=== PATIENT | male | born 1960 | race Caucasian/White ===

== ENCOUNTER 2023-11-20 13:35 | Inpatient (IN) | payer BC, MEDICARE ==
--- NOTE | 2023-11-20 13:47 | ED ---
General Adult HPI - General Source: patient, RN notes reviewed, old records reviewed <Harish Freire - Last Filed: 11/20/23 15:02> <Rudolph Lawson - Last Filed: 11/20/23 17:27> - General Stated complaint: dizziness Time Seen by Provider: 11/20/23 13:35 - History of Present Illness Initial comments: This is a 63-year-old male who presents to the emergency department with 1 week long history of dizziness. Patient states he is fallen multiple times. Patient states he may have passed out but is not sure but he knows he has fallen over a couple of times. Patient states he has had vomiting since last Sunday but no diarrhea and no abdominal pain. Patient denies any recent fever chills or cough or patient states he does have a mild headache. Patient also complains of shoulder pain. Patient denies any back pain. (Harish Freire) - Related Data Home Medications Medication Instructions Recorded Confirmed Metoprolol Tartrate [Lopressor] 50 mg PO BID 09/07/15 11/20/23 Amiodarone [Cordarone] 200 mg PO BID 11/20/23 11/20/23 Apixaban [Eliquis] 5 mg PO BID 11/20/23 11/20/23 Valsartan [Diovan] 160 mg PO DAILY 11/20/23 11/20/23 Allergies Allergy/AdvReac Type Severity Reaction Status Date / Time No Known Allergies Allergy Verified 11/20/23 15:39 Review of Systems ROS Other: All systems not noted in ROS Statement are negative. <Harish Freire - Last Filed: 11/20/23 15:02> ROS Other: All systems not noted in ROS Statement are negative. <Rudolph Lawson - Last Filed: 11/20/23 17:27> ROS Statement: Those systems with pertinent positive or pertinent negative responses have been documented in the HPI. Past Medical History Past Medical History: Atrial Fibrillation Additional Past Medical History / Comment(s): ulcer, hx pancreatitis, arthritis, History of Any Multi-Drug Resistant Organisms: MRSA Date of last positivie culture/infection: 2009 MDRO Source:: unknown Past Surgical History: Cardiac Valve Replacement, Heart Catheterization, Tonsillectomy Additional Past Surgical History / Comment(s): aortic valve replacement, surgery on rt elbow, left shoulder surgery, cardioversion Past Anesthesia/Blood Transfusion Reactions: No Reported Reaction Past Psychological History: No Psychological Hx Reported Past Alcohol Use History: Daily Past Drug Use History: Marijuana - Past Family History Father Family Medical History: Cancer Mother Family Medical History: Cancer <Hraish Freire - Last Filed: 11/20/23 15:02> General Exam <Harish Freire - Last Filed: 11/20/23 15:02> - General Exam Comments Initial Comments: GENERAL: Patient is well-developed and well-nourished. Patient is nontoxic and well- hydrated and is in mild distress. ENT: Neck is soft and supple. No significant lymphadenopathy is noted. Oropharynx is clear. Moist mucous membranes. Neck has full range of motion without eliciting any pain. EYES: The sclera were anicteric and conjunctiva were pink and moist. Extraocular movements were intact and pupils were equal round and reactive to light. Eyelids were unremarkable. PULMONARY: Unlabored respirations. Good breath sounds bilaterally. No audible rales rhonchi or wheezing was noted. CARDIOVASCULAR: There is a regular rate and rhythm without any murmurs gallops or rubs. ABDOMEN: Soft and nontender with normal bowel sounds. SKIN: Skin is clear with no lesions or rashes and otherwise unremarkable. NEUROLOGIC: Patient is alert and oriented x3. Cranial nerves II through XII are grossly intact. Motor and sensory are also intact. Normal speech, volume and content. Symmetrical smile. MUSCULOSKELETAL: Normal extremities with adequate strength and full range of motion. LYMPHATICS: No significant lymphadenopathy is noted PSYCHIATRIC: Normal psychiatric evaluation. (Harish Freire) Course Vital Signs 11/20/23 11/20/23 11/20/23 13:48 13:50 14:00 Temperature 99.0 F Pulse Rate 106 H 105 H Respiratory 20 Rate Blood Pressure 87/58 87/58 58/36 O2 Sat by Pulse Oximetry 11/20/23 11/20/23 11/20/23 14:10 14:20 14:30 Temperature Pulse Rate 101 H 105 H 93 Respiratory Rate Blood Pressure 63/43 81/26 71/53 O2 Sat by Pulse Oximetry 11/20/23 11/20/23 11/20/23 14:40 14:50 15:00 Temperature Pulse Rate 98 91 88 Respiratory Rate Blood Pressure 73/56 65/51 77/62 O2 Sat by Pulse Oximetry 11/20/23 11/20/23 11/20/23 15:10 15:20 15:29 Temperature Pulse Rate 85 89 89 Respiratory 18 Rate Blood Pressure 76/55 64/53 90/53 O2 Sat by Pulse 94 L Oximetry 11/20/23 15:58 Temperature Pulse Rate 81 Respiratory 18 Rate Blood Pressure 85/69 O2 Sat by Pulse Oximetry Medical Decision Making - Lab Data Result diagrams: 11/20/23 14:34 <Harish Freire - Last Filed: 11/20/23 15:02> - Lab Data Result diagrams: 11/20/23 14:34 11/20/23 14:34 <LawsonRudolph - Last Filed: 11/20/23 17:27> - Medical Decision Making EKG is interpreted by myself. EKG shows atrial fibrillation with rapid ventricular response at 106 bpm QRS 104 QT interval 361 QTc is 423. Patient's EKG shows no ST segment ovation or depression EKG is interpreted by myself. It was repeated because he started to have some chest discomfort so EKG shows atrial fibrillation at 97 bpm QRS 96 QT interval 396 QTc is 451. Patient's EKG shows no ST segment ovation or depression Was pt. sent in by a medical professional or institution (, PA, [employer], urgent care, hospital, or [place] health [facility] facility...) When possible be specific @ -[No] Did you speak to anyone other than the patient for history (EMS, parent, family, police, friend...)? What history was obtained from this source @ -EMS gave quite a bit of the history Did you review nursing and triage notes (agree or disagree)? Why? @ -[I reviewed and agree with nursing and triage notes] Were old charts reviewed (outside hosp., previous admission, EMS record, old EKG, old radiological studies, urgent care reports/EKG's, [place] health care facility records)? Report findings @ -[No old charts were reviewed] Differential Diagnosis (chest pain, altered mental status, abdominal pain women, abdominal pain men, vaginal bleeding, weakness, fever, dyspnea, syncope, headache, dizziness, GI bleed, back pain, seizure, CVA, palpatations, mental health, musculoskeletal)? @ -Differential Syncope: Valvular disease, hypertrophic cardiomyopathy, pulmonary embolism, tamponade, tachycardia, bradycardia, KS, hypovolemia, hemorrhage, dissection, anemia, intracranial hemorrhage, seizure, hypoglycemia, carbon monoxide poisoning, this is not meant to be an all-inclusive list. Differential Dizziness: Benign paroxysmal positional Vertigo, Menieres disease, otitis media, acoustic neuroma, vertebrobasilar insufficiency, cerebellar stroke, encephalitis, hypovolemic, arrhythmia, coronary artery syndrome, anemia, this is not meant to be an all-inclusive list EKG interpreted by me (3pts min.). @ -[As above] X-rays interpreted by me (1pt min.). @ -[None done] CT interpreted by me (1pt min.). @ -[None done] U/S interpreted by me (1pt. min.). @ -[None done] What testing was considered but not performed or refused? (CT, X-rays, U/S, lab s)? Why? @ -[None] What meds were considered but not given or refused? Why? @ -[None] Did you discuss the management of the patient with other professionals (professionals i.e. , PA, [employer]ER, lab, RT, psych nurse, social contact worker, helpdesk manager, teacher, chief information security officer, family preservation caseworker)? Give summary @ -[No] Was smoking cessation discussed for >3mins.? @ -[No] Was critical care preformed (if so, how long)? @ -[No] Were there social determinants of health that impacted care today? How? (Homelessness, low income, unemployed, alcoholism, drug addiction, transportation, low edu. Level, literacy, decrease access to med. care, [facility], rehab)? @ -[No] Was there de-escalation of care discussed even if they declined (Discuss DNR or withdrawal of care, Hospice)? DNR status @ -[No] What co-morbidities impacted this encounter? (DM, HTN, Smoking, COPD, CAD, Cancer, CVA, ARF, Chemo, Hep., AIDS, mental health diagnosis, sleep apnea, morbid obesity)? @ -[None] Was patient admitted / discharged? Hospital course, mention meds given and route, prescriptions, significant lab abnormalities, going to OR and other pertinent info. @ -3 L of normal saline ordered for this patient as well as 100 mg of hydrocortisone. Patient's care will be taken over by Dr. Lawson at 3 PM (Harish Freire) Patient reevaluated. Blood pressure 85 systolic. Prior was 90. Patient will receive additional fluids. Patient states he has not been eating or drinking much of anything over the past week and has had some vomiting. Case was discussed with Dr. Gibbons, who will admit covering for Dr. Peters, who admits for Dr. Cabrera. Admission orders written. Patient will be admitted to the hospital with consult with nephrology. Patient will have continued IV fluids. Patient will need catheter and ultrasound. 31 minutes critical care time. Diagnosis: Acute kidney injury Acute Complicated with lactic acidosis from dehydration CT scan of brain and cervical spine interpreted by myself shows no acute process. Chest x-ray interpreted by myself shows no acute process (Rudolph Lawson) - Lab Data Lab Results 11/20/23 11/20/23 11/20/23 Range/Units 14:30 14:30 14:34 WBC 12.7 H (3.8-10.6) k/uL RBC 5.46 (4.30-5.90) m/uL Hgb 16.0 (13.0-17.5) gm/dL Hct 48.5 (39.0-53.0) % MCV 88.9 (80.0-100.0) fL MCH 29.4 (25.0-35.0) pg MCHC 33.1 (31.0-37.0) g/dL RDW 15.3 (11.5-15.5) % Plt Count 227 (150-450) k/uL MPV 11.6 Neutrophils % 72 % Lymphocytes % 15 % Monocytes % 9 % Eosinophils % 1 % Basophils % 1 % Neutrophils # 9.2 H (1.3-7.7) k/uL Lymphocytes # 2.0 (1.0-4.8) k/uL Monocytes # 1.1 H (0-1.0) k/uL Eosinophils # 0.2 (0-0.7) k/uL Basophils # 0.1 (0-0.2) k/uL PT (10.0-12.5) sec INR (<1.2) APTT (22.0-30.0) sec Sodium (137-145) mmol/L Potassium (3.5-5.1) mmol/L Chloride (98-107) mmol/L Carbon Dioxide (22-30) mmol/L Anion Gap mmol/L BUN (9-20) mg/dL Creatinine (0.66-1.25) mg/dL Est GFR (CKD-EPI)AfAm (>60 ml/min/1.73 sqM) Est GFR (CKD-EPI)NonAf (>60 ml/min/1.73 sqM) Glucose (74-99) mg/dL Plasma Lactic Acid Juno 7.5 H* (0.7-2.0) mmol/L Calcium (8.4-10.2) mg/dL Magnesium (1.6-2.3) mg/dL Total Bilirubin (0.2-1.3) mg/dL AST (17-59) U/L ALT (4-49) U/L Alkaline Phosphatase (38-126) U/L Troponin I (0.000-0.034) ng/mL Total Protein (6.3-8.2) g/dL Albumin (3.5-5.0) g/dL Influenza Type A (PCR) Not Detected (Not Detectd) Influenza Type B (PCR) Not Detected (Not Detectd) RSV (PCR) Not Detected (Not Detectd) SARS-CoV-2 (PCR) Not Detected (Not Detectd) 11/20/23 11/20/23 11/20/23 Range/Units 14:34 14:34 14:34 WBC (3.8-10.6) k/uL RBC (4.30-5.90) m/uL Hgb (13.0-17.5) gm/dL Hct (39.0-53.0) % MCV (80.0-100.0) fL MCH (25.0-35.0) pg MCHC (31.0-37.0) g/dL RDW (11.5-15.5) % Plt Count (150-450) k/uL MPV Neutrophils % % Lymphocytes % % Monocytes % % Eosinophils % % Basophils % % Neutrophils # (1.3-7.7) k/uL Lymphocytes # (1.0-4.8) k/uL Monocytes # (0-1.0) k/uL Eosinophils # (0-0.7) k/uL Basophils # (0-0.2) k/uL PT 13.2 H (10.0-12.5) sec INR 1.3 H (<1.2) APTT 25.5 (22.0-30.0) sec Sodium 133 L (137-145) mmol/L Potassium 4.3 (3.5-5.1) mmol/L Chloride 85 L (98-107) mmol/L Carbon Dioxide 26 (22-30) mmol/L Anion Gap 22 mmol/L BUN 129 H* (9-20) mg/dL Creatinine 7.71 H* (0.66-1.25) mg/dL Est GFR (CKD-EPI)AfAm 8 (>60 ml/min/1.73 sqM) Est GFR (CKD-EPI)NonAf 7 (>60 ml/min/1.73 sqM) Glucose 97 (74-99) mg/dL Plasma Lactic Acid Juno (0.7-2.0) mmol/L Calcium 9.1 (8.4-10.2) mg/dL Magnesium 2.2 (1.6-2.3) mg/dL Total Bilirubin 0.9 (0.2-1.3) mg/dL AST 35 (17-59) U/L ALT 28 (4-49) U/L Alkaline Phosphatase 133 H (38-126) U/L Troponin I 0.040 H* (0.000-0.034) ng/mL Total Protein 6.7 (6.3-8.2) g/dL Albumin 4.0 (3.5-5.0) g/dL Influenza Type A (PCR) (Not Detectd) Influenza Type B (PCR) (Not Detectd) RSV (PCR) (Not Detectd) SARS-CoV-2 (PCR) (Not Detectd) Critical Care Time Critical Care Time: Yes Total Critical Care Time: 31 <Rudolph Lawson - Last Filed: 11/20/23 17:27> Disposition <Harish Freire - Last Filed: 11/20/23 15:02> Is patient prescribed a controlled substance at d/c from ED?: No Time of Disposition: 16:23 <Rudolph Lawson - Last Filed: 11/20/23 17:27> Clinical Impression: GAMAL (acute kidney injury) Disposition: ADMITTED IP TO THIS HOSP Condition: Serious Referrals: Manpreet Cabrera MD [Primary Care Provider] - 1-2 days
[2023-11-20 14:40] LABS: Basophils # (A) 0.1 k/uL (0-0.2); Basophils % (A) 1 %; Eosinophils # (A) 0.2 k/uL (0-0.7); Eosinophils % (A) 1 %; HCT 48.5 % (39.0-53.0); Lymphocytes % (A) 15 %; MCH 29.4 pg (25.0-35.0); MCHC 33.1 g/dL (31.0-37.0); MCV 88.9 fL (80.0-100.0); Mean Platelet Volume 11.6; Monocytes # (A) 1.1 k/uL (0-1.0); Monocytes % (A) 9 %; Neutrophils # (A) 9.2 k/uL (1.3-7.7); Neutrophils % (A) 72 %; Platelet Count 227 k/uL (150-450); RBC 5.46 m/uL (4.30-5.90); RDW 15.3 % (11.5-15.5); WBC 12.7 k/uL (3.8-10.6)
[2023-11-20 14:50] LABS: INR 1.3 (<1.2); Partial Thromboplastin Time 25.5 sec (22.0-30.0); Prothrombin Time 13.2 sec (10.0-12.5)
[2023-11-20 14:58] LABS: ALT 28 U/L (4-49); AST 35 U/L (17-59); African American GFR (CKD) 8 (>60 ml/min/1.73 sqM); Alkaline Phosphatase 133 U/L (38-126); Anion Gap 22 mmol/L; Calcium 9.1 mg/dL (8.4-10.2); Carbon Dioxide 26 mmol/L (22-30); Chloride 85 mmol/L (98-107); Glucose 97 mg/dL (74-99); Magnesium 2.2 mg/dL (1.6-2.3); Non-African American GFR(CKD) 7 (>60 ml/min/1.73 sqM); Potassium 4.3 mmol/L (3.5-5.1); Sodium 133 mmol/L (137-145); Total Bilirubin 0.9 mg/dL (0.2-1.3); Total Protein 6.7 g/dL (6.3-8.2)
[2023-11-20] MEDS: SODIUM CHLORIDE 0.9% 2,000 ML IV ONE (15:02)
[2023-11-20] MEDS: HYDROCORTISONE SUCCINATE 100 MG/2 ML VIAL IV STA (15:02)
[2023-11-20 15:20] LABS: Blood Urea Nitrogen 129 mg/dL (9-20)
[2023-11-20] MEDS: ONDANSETRON 4 MG/2 ML VIAL IVP STA (16:01)
[2023-11-20] MEDS: MECLIZINE 25 MG TAB PO STA (16:01)
[2023-11-20] MEDS ORDERED: NALOXONE 0.4 MG/ML 1 ML VIAL IV PRN ×2 (16:24→20:09)
--- NOTE | 2023-11-20 16:45 | XR ---
EXAMINATION TYPE: XR chest 2V DATE OF EXAM: 11/20/2023 COMPARISON: 01/25/2011 HISTORY: 63-year-old male with chest pain TECHNIQUE: AP and lateral views FINDINGS: Heart borderline in size. Prosthetic aortic valve. Median sternotomy wires. Mild interstitial density . No consolidation or pleural effusion. IMPRESSION: Chronic changes. Borderline heart size. No acute process seen.
--- NOTE | 2023-11-20 17:08 | CT ---
EXAMINATION TYPE: CT brain jewell wo con DATE OF EXAM: 11/20/2023 COMPARISON: None HISTORY: 63-year-old male trauma, DUENAS and dizziness. CT DLP: 1361.4 mGycm Automated exposure control for dose reduction was used. Technique: Examination of the head was done in axial plane without intravenous contrast. Coronal and sagittal reconstructions performed. CT of the cervical spine was obtained in axial plane without intravenous injection of contrast mater ial. Coronal and sagittal reformatted images were obtained from the axial views for evaluation of f ractures, spinal alignment and canal. FINDINGS: Head: There is no evidence of acute intracranial hemorrhage, acute ischemic changes, mass, mass-effect, or extra-axial fluid collection. There is no effacement of cerebral sulci or basal subarachnoid cister ns. There is no hydrocephalus. There is no midline shift. Vyas-white matter distinction is preserv ed. Mild mucosal thickening throughout the ethmoid air cells. Mastoid air cells are well pneumatized. Orb its and globes are intact. Cervical spine: No craniocervical junction abnormality, predental space widening, or prevertebral soft tissue swellin g. Severe disc/endplate degenerative change C5-C7 levels with loss of disc space and endplate sclerosis. Disc osteophyte complexes are present contributing to moderate spinal canal stenosis here. Multilevel facet and uncovertebral joint arthropathy is present. Degenerative grade 1 anterolisthesis C3-C4 and C4-C5. Grade 1 retrolisthesis C5-C6 and C6-C7. Additional grade 1 anterolisthesis C7-T1. No acute fracture seen of the cervical spine. Variable moderate neural foraminal stenosis throughout. Severe on the right at C5-C6 and on both side s at C6/C7. Emphysematous change in the visualized upper lungs. Sagittal and coronal reformatted images confirm above findings. COMBINED IMPRESSION: 1. No acute intracranial abnormality seen. 2. Moderate to advanced multilevel spondylotic changes especially C5-C7 levels. Degenerative grade 1 spondylolisthesis C3-T1 levels. No acute fracture seen of the cervical spine.
[2023-11-20] MEDS: PANTOPRAZOLE 40 MG/10 ML VIAL IV SCH (17:32)
[2023-11-20] MEDS: SODIUM CHLORIDE 0.9% 1,000 ML IV SCH (17:32)
[2023-11-20 17:42] LABS: Appearance,Urine Clear (Clear); Bilirubin,Urine Negative (Negative); Blood,Urine Negative (Negative); Color,Urine Light Yellow; Glucose,Urine (UA) Negative (Negative); Ketones,Urine 1+ (Negative); Leukocyte Esterase,Urine Negative (Negative); Nitrite,Urine Negative (Negative); Protein,Urine Trace (Negative); Specific Gravity,Urine 1.011 (1.001-1.035); Urobilinogen,Urine <2.0 mg/dL (<2.0)
--- NOTE | 2023-11-20 18:47 | US ---
EXAMINATION TYPE: US kidneys/renal and bladder DATE OF EXAM: 11/20/2023 COMPARISON: NONE CLINICAL INDICATION: Male, 63 years old with history of GAMAL EXAM MEASUREMENTS: Right Kidney: 9.4 x 6.5 x 5.3 cm Left Kidney: 11.4 x 4.3 x 6.0 cm Right Kidney: No hydronephrosis or masses seen Left Kidney: No hydronephrosis or masses seen Bladder: Empty due to Horton Bilateral Jets seen: No IMPRESSION: 1. No hydronephrosis. 2. Limited assessment of the bladder due to indwelling Horton catheter.
[2023-11-20 20:28] LABS: Glucose,Whole Blood 133 mg/dL (70-110)
[2023-11-20 21:29] LABS: Basophils % (A) 0 %; Eosinophils % (A) 0 %; HCT 40.9 % (39.0-53.0); HGB 13.3 gm/dL (13.0-17.5); Lymphocytes # (A) 0.6 k/uL (1.0-4.8); Lymphocytes % (A) 8 %; MCH 29.8 pg (25.0-35.0); MCHC 32.5 g/dL (31.0-37.0); MCV 91.8 fL (80.0-100.0); Mean Platelet Volume 11.2; Monocytes # (A) 0.3 k/uL (0-1.0); Monocytes % (A) 4 %; Neutrophils # (A) 5.8 k/uL (1.3-7.7); Neutrophils % (A) 86 %; Platelet Count 147 k/uL (150-450); RBC 4.45 m/uL (4.30-5.90); RDW 15.3 % (11.5-15.5); WBC 6.8 k/uL (3.8-10.6)
[2023-11-20] MEDS: NOREPINEPHRINE 4 MG in SODIUM CHLORIDE 0.9% 250 ML IV SCH (21:30)
[2023-11-20 21:35] LABS: African American GFR (CKD) 12 (>60 ml/min/1.73 sqM); Anion Gap 16 mmol/L; Calcium 7.6 mg/dL (8.4-10.2); Carbon Dioxide 17 mmol/L (22-30); Chloride 102 mmol/L (98-107); Glucose 123 mg/dL (74-99); Magnesium 1.8 mg/dL (1.6-2.3); Non-African American GFR(CKD) 10 (>60 ml/min/1.73 sqM); Potassium 4.2 mmol/L (3.5-5.1); Sodium 135 mmol/L (137-145)
[2023-11-20 22:29] LABS: Blood Urea Nitrogen 109 mg/dL (9-20)
[2023-11-21] MEDS ORDERED: LORazepam 2 MG/ML INJ IV PRN ×3 (01:44)
--- NOTE | 2023-11-21 01:59 | P.CNPUL ---
History of Present Illness Consult date: 11/21/23 Requesting physician: Rudolph Lawson Reason for consult: other (Hypotension and ICU management) Chief complaint: Intractable nausea and vomiting, dizziness, falls History of present illness: I am seeing this patient in consultation today 11/21/2023 in the intensive care unit after he was admitted for intractable nausea and vomiting, severe dehydration, and acute kidney injury. Blood pressure was hypotensive in the emergency room despite adequate fluid resuscitation, requiring low-dose norepine phrine, and admission to the intensive care unit. Patient is a 63-year-old white male with past medical history significant for aortic valve replacement, atrial fibrillation, alcoholism, and chronic pancreatitis. Patient reports intractable nausea and vomiting over the last week. No fever. He is not able to keep any oral fluids or food down. He has been severely weak. He has been dizzy especially on arising. Reports multiple near syncopal events where he is fallen on the floor. Patient states that he has drinks alcohol, approximately 6-12 beers per day, but has not had anything over the last week. He denies any hematemesis, diarrhea, melena, constipation. He does report some mild right lower quadrant abdominal pain. Nonradiating. Abdomen is soft and does not appear acute. No guarding with palpation or rigidity. Patient is currently lying in bed, on 2 L/min nasal cannula, in no acute distress. SpO2 is 95%. Denies any shortness of breath. Denies any URI-like symptoms. Negative for influenza, RSV, COVID. Chest x-ray does not show any acute cardiopulmonary findings. Den ies chest pain. Does report intermittent heart palpitations and lightheadedness. 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 He is also on losartan and metoprolol outpatient. Heart rhythm is currently atrial fibrillation with controlled ventricular rate of around 70 bpm. Blood pressure remains hypotensive despite multiple fluid boluses given in ER, I am told a total of 4 L of crystalloid fluid was given. Normal saline is currently infusing at 130 MLS per hour. Patient is currently on low-dose norepinephrine infusing at 0.02 mcg/kg/min or 1.5 mcg/min. He has sustained acute kidney injury. Ultrasound of the kidneys and bladder did not show any obstructive uropathy or hydronephrosis. Most recent BMP from last night includes a sodium 135, potassium 4.2, chloride 102, serum bicarb 17, BUN and creatinine down to 109 and 5.43 respectively, glucose 123. Most recent CBC from last night was unremarkable, no leukocytosis. Lactic acid level was elevated at 7.5 and is down to 1.4. Troponin was also elevated at 0.4 and is down to 0.026 on redraw. Lipase was only mildly elevated at 317. AST 35, ALT 28, ALP 133. Urinalysis not concerning for UTI. He does have a indwelling urinary catheter, and is making urine in the order of approximately 50 cc/h. Currently, the patient is resting comfortably. No further nausea or vomiting. He is tolerating a minimal amount of clear liquids. Review of Systems REVIEW OF SYSTEMS: CONSTITUTIONAL: Denies any recent significant weight loss or weight gain. Admits generalized weakness and fatigue and lightheadedness. Denies fevers. EYES: Denies change in vision. EARS, NOSE, MOUTH, THROAT: Denies headaches, denies sore throat. CARDIOVASCULAR: See HPI RESPIRATORY: Denies shortness of breath, cough, congestion or hemoptysis. GASTROINTESTINAL: See HPI GENITOURINARY: Denies hematuria, denies infections. MUSKULOSKELETAL: Denies pain, denies swelling. INTEGUMENTARY: Denies rash, denies eczema. NEUROLOGICAL: Denies recent memory loss, no recent seizure activity. PSYCHIATRIC: Denies anxiety, denies depression. HEMATOLOGIC/LYMPHATIC: Denies anemia, denies enlarged lymph node Past Medical History Past Medical History: Atrial Fibrillation Additional Past Medical History / Comment(s): ulcer, hx pancreatitis, arthritis, aortic valve replacement at [facility] Nov 07 2010. History of Any Multi-Drug Resistant Organisms: MRSA Date of last positivie culture/infection: 2009 MDRO Source:: unknown Past Surgical History: Bowel Resection, Cardiac Valve Replacement, Heart Catheterization, Tonsillectomy Additional Past Surgical History / Comment(s): aortic valve replacement, surgery on rt elbow, left shoulder surgery, cardioversion 2023 Past Anesthesia/Blood Transfusion Reactions: No Reported Reaction Past Psychological History: No Psychological Hx Reported Smoking Status: Former smoker Past Alcohol Use History: Daily Past Drug Use History: Marijuana - Past Family History Father Family Medical History: Cancer Mother Family Medical History: Cancer Medications and Allergies Home Medications Medication Instructions Recorded Confirmed Type Metoprolol Tartrate [Lopressor] 50 mg PO BID 09/07/15 11/20/23 History Amiodarone [Cordarone] 200 mg PO BID 11/20/23 11/20/23 History Apixaban [Eliquis] 5 mg PO BID 11/20/23 11/20/23 History Valsartan [Diovan] 160 mg PO DAILY 11/20/23 11/20/23 History Allergies Allergy/AdvReac Type Severity Reaction Status Date / Time No Known Allergies Allergy Verified 11/20/23 15:39 Physical Exam Vitals: Vital Signs Temp Pulse Resp BP Pulse Ox 11/20/23 23:00 74 5 L 73/59 96 11/20/23 22:57 19 11/20/23 22:50 73 23 73/59 94 L 11/20/23 22:40 77 8 L 85/63 94 L 11/20/23 22:30 74 7 L 77/60 95 11/20/23 22:20 76 6 L 77/60 96 11/20/23 22:10 73 11 L 83/62 96 11/20/23 22:00 74 6 L 82/62 96 11/20/23 21:50 82 6 L 82/62 98 11/20/23 21:40 76 12 82/60 95 11/20/23 21:30 70 10 L 79/60 96 11/20/23 21:20 77 6 L 79/60 93 L 11/20/23 21:10 72 18 68/54 94 L 11/20/23 21:00 79 4 L 93/48 93 L 11/20/23 20:50 74 6 L 93/48 96 11/20/23 20:40 82 5 L 97/75 94 L 11/20/23 20:30 85 27 H 92/39 97 11/20/23 20:22 98.9 F 82 16 79/64 97 11/20/23 20:20 79/64 11/20/23 18:30 86 80/60 95 11/20/23 18:20 86 80/60 94 L 11/20/23 18:10 85 80/60 94 L 11/20/23 18:00 82 98 11/20/23 17:50 85 95 11/20/23 17:40 85 97 11/20/23 17:30 87 11/20/23 17:20 75 85/70 99 11/20/23 17:10 79 86/72 87 L 11/20/23 17:00 82 86/72 11/20/23 16:50 87/62 11/20/23 16:40 87/62 11/20/23 16:30 87/62 11/20/23 16:20 82 88/62 100 11/20/23 16:10 85 86/64 100 11/20/23 16:00 81 85/69 11/20/23 15:58 81 18 85/69 11/20/23 15:50 87 81/63 100 11/20/23 15:40 87 77/57 11/20/23 15:30 89 90/53 11/20/23 15:29 89 18 90/53 11/20/23 15:20 89 64/53 94 L 11/20/23 15:10 85 76/55 11/20/23 15:00 88 77/62 11/20/23 14:50 91 65/51 11/20/23 14:40 98 73/56 11/20/23 14:30 93 71/53 11/20/23 14:20 105 H 81/26 11/20/23 14:10 101 H 63/43 11/20/23 14:00 105 H 58/36 11/20/23 13:50 87/58 11/20/23 13:48 99.0 F 106 H 20 87/58 Intake and Output 11/20/23 11/20/23 11/21/23 14:59 22:59 06:59 Intake Total 260 Output Total 155 Balance 105 Intake: Intake, IV Titration 260 Amount Sodium Chloride 0.9% 1, 260 000 ml @ 130 mls/hr IV . Q7H42M [facility] Rx#:[id number] Output: Urine 155 Other: Voiding Method Indwelling Catheter Weight 74.843 kg 74.843 kg GENERAL EXAM: Alert, 63-year-old white male, comfortable in no apparent distress. HEAD: Normocephalic and atraumatic EYES: Normal reaction of pupils, equal size. NOSE: Clear with pink turbinates. THROAT: Dry mucous membranes, No erythema or exudates. NECK: No masses, no JVD. CHEST: No chest wall deformity. LUNGS: Equal air entry with no crackles, wheeze, rhonchi or dullness. No conversational dyspnea or accessory muscle use.. CVS: S1 and S2 normal with no audible murmur, irregular rhythm. No extra heart sounds ABDOMEN: Abdomen is flat. No periumbilical or flank bruising. Active bowel sounds. No appreciable hepatosplenomegaly. Abdomen is soft. No guarding or rigidity. Psoas sign negative. No rebound tenderness or referred tenderness. Negative Schilling's sign. SPINE: No scoliosis or deformity SKIN: No rashes CENTRAL NERVOUS SYSTEM: No focal deficits, tone is normal in all 4 extremities. EXTREMITIES: There is no peripheral edema, clubbing, or cyanosis. Peripheral pulses are intact. Results - Laboratory Findings CBC and BMP: 11/20/23 20:42 11/20/23 20:42 PT/INR, D-dimer PT 13.2 sec (10.0-12.5) H 11/20/23 14:34 INR 1.3 (<1.2) H 11/20/23 14:34 Abnormal lab findings: Abnormal Labs 11/20/23 11/20/23 11/20/23 14:30 14:34 14:34 WBC 12.7 H Plt Count Neutrophils # 9.2 H Lymphocytes # Monocytes # 1.1 H PT 13.2 H INR 1.3 H Sodium Chloride Carbon Dioxide BUN Creatinine Glucose POC Glucose (mg/dL) Plasma Lactic Acid Juno 7.5 H* Calcium Alkaline Phosphatase Troponin I Lipase Urine Protein Urine Ketones 11/20/23 11/20/23 11/20/23 14:34 14:34 17:36 WBC Plt Count Neutrophils # Lymphocytes # Monocytes # PT INR Sodium 133 L Chloride 85 L Carbon Dioxide BUN 129 H* Creatinine 7.71 H* Glucose POC Glucose (mg/dL) Plasma Lactic Acid Juno Calcium Alkaline Phosphatase 133 H Troponin I 0.040 H* Lipase Urine Protein Trace H Urine Ketones 1+ H 11/20/23 11/20/23 11/20/23 20:27 20:42 20:42 WBC Plt Count 147 L Neutrophils # Lymphocytes # 0.6 L Monocytes # PT INR Sodium 135 L Chloride Carbon Dioxide 17 L BUN 109 H* Creatinine 5.43 H Glucose 123 H POC Glucose (mg/dL) 133 H Plasma Lactic Acid Juno Calcium 7.6 L Alkaline Phosphatase Troponin I Lipase Urine Protein Urine Ketones 11/20/23 23:13 WBC Plt Count Neutrophils # Lymphocytes # Monocytes # PT INR Sodium Chloride Carbon Dioxide BUN Creatinine Glucose POC Glucose (mg/dL) Plasma Lactic Acid Juno Calcium Alkaline Phosphatase Troponin I Lipase 317 H Urine Protein Urine Ketones - Diagnostic Findings Chest x-ray: image reviewed Assessment and Plan Assessment: Intractable nausea and vomiting and severe dehydration Refractory hypotension and suspected hypovolemic shock, secondary to above Lactic acidosis, improved Abdominal pain, currently under investigation Acute kidney injury, secondary to severe dehydration, improving Atrial fibrillation with controlled ventricular rate, normally anticoagulated on Eliquis History of hypertension History of aortic stenosis, status post aortic valve replacement Alcoholism, drinks 6-12 beers per day History of chronic pancreatitis Plan: Patient's medications, labs, chest x-ray reviewed Patient's nausea and vomiting has subsided, there is PRNs of Zofran if needed. Tolerating clear liquids at this time. Patient is complaining of some mild right lower abdominal pain, does not appear acute, will order abdominal ultrasound Ultrasound of renals and bladder does not show any obstructive uropathy or hydronephrosis. Nephrology is consulted. He remains hypotensive despite multiple fluid boluses, I am told he is received a total of 4 L normal saline bolus so far. He is currently on a low-dose norepinephrine infusion Continue to hold antihypertensives. Continue Eliquis Obtain 2D echocardiogram Monitor for alcohol withdrawal symptoms/CIWA Protonix for GI prophylaxis. Patient will be continued to be monitored in the intensive care unit. I have personally seen and examined the patient, performed the documentation and the assessment and plan as written. Number of minutes spent on the visit:20 I Time with Patient: Greater than 30
[2023-11-21 02:11] LABS: Basophils % (A) 0 %; Eosinophils % (A) 1 %; HCT 38.2 % (39.0-53.0); HGB 12.7 gm/dL (13.0-17.5); Lymphocytes # (A) 0.5 k/uL (1.0-4.8); Lymphocytes % (A) 8 %; MCH 30.1 pg (25.0-35.0); MCHC 33.3 g/dL (31.0-37.0); MCV 90.4 fL (80.0-100.0); Mean Platelet Volume 11.1; Monocytes # (A) 0.3 k/uL (0-1.0); Monocytes % (A) 5 %; Neutrophils # (A) 5.1 k/uL (1.3-7.7); Neutrophils % (A) 86 %; Platelet Count 153 k/uL (150-450); RBC 4.22 m/uL (4.30-5.90); RDW 15.2 % (11.5-15.5); WBC 5.9 k/uL (3.8-10.6)
[2023-11-21] MEDS: THIAMINE 100 MG/ML 2 ML VIAL IM STA (02:16)
[2023-11-21 02:24] LABS: ALT 30 U/L (4-49); AST 40 U/L (17-59); African American GFR (CKD) 14 (>60 ml/min/1.73 sqM); Albumin 2.7 g/dL (3.5-5.0); Alkaline Phosphatase 102 U/L (38-126); Anion Gap 8 mmol/L; Calcium 7.4 mg/dL (8.4-10.2); Carbon Dioxide 21 mmol/L (22-30); Chloride 103 mmol/L (98-107); Glucose 115 mg/dL (74-99); Non-African American GFR(CKD) 13 (>60 ml/min/1.73 sqM); Potassium 4.4 mmol/L (3.5-5.1); Sodium 132 mmol/L (137-145); Total Bilirubin 0.8 mg/dL (0.2-1.3); Total Protein 5.2 g/dL (6.3-8.2)
[2023-11-21 03:03] LABS: Blood Urea Nitrogen 105 mg/dL (9-20)
--- NOTE | 2023-11-21 07:48 | US ---
EXAMINATION TYPE: US abdomen complete DATE OF EXAM: 11/21/2023 COMPARISON: None CLINICAL INDICATION: Male, 63 years old with history of right sided abdominal pain; Patient denies an y other signs or symptoms TECHNIQUE: Multiple sonographic images of the abdomen are obtained. FINDINGS: EXAM MEASUREMENTS: Liver Length: 14.5 cm Gallbladder Wall: 0.2 cm CBD: 5.5 mm Spleen: 8.7 cm Right Kidney: 9.6 x 5.9 x 5.6 cm Left Kidney: 10.4 x 5.4 x 4.6 cm Pancreas: Duct seen = 0.7 cm, friendly dilated. Limited detail parenchymal assessment. Liver: Only small portions are visualized. The majority is obscured by overlying bowel gas and rib s hadowing. Gallbladder: No abnormal distention, shadowing calculi, or surrounding fluid. Evidence for sonographic Schilling's sign: No CBD: Upper limits of normal in caliber, acceptable given patient's age. Spleen: Obscured by overlying bowel gas Right Kidney: trace perinephric fluid inferior pole. No hydronephrosis. Left Kidney: Limited detail parenchymal assessment due to bowel gas shadowing. No hydronephrosis. Upper IVC: Obscured by overlying bowel gas Abd Aorta: wnl IMPRESSION: 1. Frankly dilated main pancreatic duct up to 7 mm. Correlate with amylase and lipase and CA-[id number] lev els. Further cross-sectional evaluation may be indicated to exclude an obstructing lesion/mass of the pancreas. 2. No gallstones. Bile duct measures 5.5 mm, upper limits of normal, acceptable given patient's age.
[2023-11-21 08:08] LABS: Basophils % (A) 0 %; Eosinophils % (A) 0 %; HCT 41.1 % (39.0-53.0); HGB 13.1 gm/dL (13.0-17.5); Lymphocytes # (A) 0.8 k/uL (1.0-4.8); Lymphocytes % (A) 9 %; MCH 29.3 pg (25.0-35.0); MCHC 31.8 g/dL (31.0-37.0); MCV 92.1 fL (80.0-100.0); Mean Platelet Volume 11.2; Monocytes # (A) 0.5 k/uL (0-1.0); Monocytes % (A) 7 %; Neutrophils # (A) 6.8 k/uL (1.3-7.7); Neutrophils % (A) 83 %; Platelet Count 153 k/uL (150-450); RBC 4.46 m/uL (4.30-5.90); WBC 8.2 k/uL (3.8-10.6)
[2023-11-21] MEDS: APIXABAN 5 MG TAB PO SCH (09:43)
--- NOTE | 2023-11-21 12:23 | CA ---
Transthoracic Echo Report Name: Bull Patel Age: 63 Gender: M : 1960 Exam Date: 11/21/2023 10:50 Exam Location: [facility] Ht (in): 70 Wt (lb): 165 Ordering Physician: Camilo Zarate Attending/Referring Phys: Design Specialist Gissel Aranda RCS Procedure CPT: Indications: evaluate LV function Cardiac Hx: Technical Quality: Technically difficult study Contrast 1: Total Dose (mL): Contrast 2: Total Dose (mL): MEASUREMENTS (Male / Female) Normal Values 2D ECHO LV Diastolic Diameter PLAX 3.4 cm 4.2 - 5.9 / 3.9 - 5.3 cm LV Systolic Diameter PLAX 2.2 cm IVS Diastolic Thickness 1.3 cm 0.6 - 1.0 / 0.6 - 0.9 cm LVPW Diastolic Thickness 1.1 cm 0.6 - 1.0 / 0.6 - 0.9 cm LV Relative Wall Thickness 0.7 RV Internal Dim ED PLAX 3.2 cm LVOT Diameter 2.4 cm LV Diastolic Volume MOD BP 92.8 cm??? 67 - 155 / 56 - 104 cm??? LV Systolic Volume MOD BP 20.5 cm??? 22 - 58 / 19 - 49 cm??? LV Ejection Fraction MOD BP 77.9 % >= 55 % LV Cardiac Index MOD BP 2964.3 cm???/min???m??? LV Diastolic Volume MOD 4C 73.7 cm??? LV Systolic Volume MOD 4C 19.7 cm??? LV Ejection Fraction MOD 4C 73.3 % LV Cardiac Index MOD 4C 2216.2 cm???/min???m??? LV Diastolic Length 4C 8.2 cm LV Systolic Length 4C 6.3 cm LV Diastolic Volume MOD 2C 115.5 cm??? LV Systolic Volume MOD 2C 19.4 cm??? LV Ejection Fraction MOD 2C 83.2 % LV Cardiac Index MOD 2C 3940.8 cm???/min???m??? LV Diastolic Length 2C 8.0 cm LV Systolic Length 2C 5.7 cm LA Volume 83.4 cm??? 18 - 58 / 22 - 52 cm??? LA Volume Index 43.3 cm???/m??? 16 - 28 cm???/m??? DOPPLER AV Peak Velocity 181.1 cm/s AV Peak Gradient 13.1 mmHg AV Mean Velocity 123.4 cm/s AV Mean Gradient 7.1 mmHg AV Velocity Time Integral 31.2 cm LVOT Peak Velocity 109.1 cm/s LVOT Peak Gradient 4.8 mmHg LVOT Velocity Time Integral 19.0 cm LVOT Stroke Volume 84.4 cm??? LVOT Stroke Volume Index 43.9 ml/m??? LVOT Cardiac Index 3461.7 cm???/min???m??? AV Area Cont Eq vti 2.7 cm??? AV Area Cont Eq pk 2.7 cm??? MV Peak Velocity 122.1 cm/s MV Peak Gradient 6.0 mmHg MV Mean Velocity 69.4 cm/s MV Mean Gradient 2.4 mmHg MV Velocity Time Integral 30.9 cm TR Peak Velocity 207.1 cm/s TR Peak Gradient 17.1 mmHg FINDINGS Left Ventricle Left ventricular ejection fraction is estimated at 60-65 %. Left ventricular cavity size normal. Left ventricular wall thickness normal. No obvious regional wall motion abnormalities. Mildly increased septal wall thickness. Right Ventricle Normal right ventricular size and function. Right ventricular systolic pressure within normal limits. Right Atrium Normal right atrial size. Left Atrium Severely increased left atrial volume. Mildly increased left atrial area. Mitral Valve Mitral valve thickened. No mitral stenosis, regurgitation or prolapse. Aortic Valve Normally functioning bioprosthetic aortic valve without stenosis with a peak velocity of 1.8 m/s, peak gradient 13 mmHg, mean gradient 6 mmHg, and estimated aortic valve area of 2.7 cm???. Tricuspid Valve Structurally normal tricuspid valve. No tricuspid prolapse. No tricuspid stenosis. Trace tricuspid regurgitation. Pulmonic Valve Pulmonic valve not well visualized. No pulmonic stenosis. No pulmonic regurgitation. Pericardium No pericardial effusion. Aorta Normal size aortic root and proximal ascending aorta. CONCLUSIONS Left ventricular ejection fraction is estimated at 60-65 %. No obvious regional wall motion abnormalities. No significant valvular dysfunction RVSP less than 25 mmHg Previewed by: Dr Gabriel Everett (Electronically Signed) Final Date: 21 November 2023 12:22
--- NOTE | 2023-11-21 13:03 | P.HPIM ---
History of Present Illness Patient pleasant 63-year-old male is admitted for acute renal failure with creatinine going up to 7.1 on admission came down to 4.6 with IV fluids. Patient has not been eating or drinking for 1 week secondary to nausea vomiting which is again secondary to gastroesophageal reflux disease or gastritis or peptic ulcer disease. Patient has multiple near syncopal episodes patient was in hypovolemic shock requiring pressor support IV fluids and was admitted to ICU patient is feeling much better at this time he is on diet. Patient has mild nonspecific elevation of lipase present creatinine is 4.6 patient had leukocytosis which improved no evidence of infection at this time patient has mild elevated of troponin on admission secondary to renal failure which improved at this time patient does not have any chest pain or EKG changes chest x-ray did not show any significant abnormality. REVIEW OF SYSTEMS: CONSTITUTIONAL: No fever, no malaise, no fatigue. HEENT: No recent visual problems or hearing problems. Denied any sore throat. CARDIOVASCULAR: No chest pain, orthopnea, PND, no palpitations, no syncope. PULMONARY: No shortness of breath, no cough, no hemoptysis. GASTROINTESTINAL: No diarrhea, no nausea, no vomiting, no abdominal pain. NEUROLOGICAL: No headaches, no weakness, no numbness. HEMATOLOGICAL: Denies any bleeding or petechiae. GENITOURINARY: Denies any burning micturition, frequency, or urgency. MUSCULOSKELETAL/RHEUMATOLOGICAL: Denies any joint pain, swelling, or any muscle pain. ENDOCRINE: Denies any polyuria or polydipsia. The rest of the 14-point review of systems is negative. PHYSICAL EXAMINATION: GENERAL: The patient is alert and oriented x3, not in any acute distress. Well developed, well nourished. HEENT: Pupils are round and equally reacting to light. EOMI. No scleral icterus. No conjunctival pallor. Normocephalic, atraumatic. No pharyngeal erythema. No thyromegaly. CARDIOVASCULAR: S1 and S2 present. No murmurs, rubs, or gallops. PULMONARY: Chest is clear to auscultation, no wheezing or crackles. ABDOMEN: Soft, nontender, nondistended, normoactive bowel sounds. No palpable organomegaly. MUSCULOSKELETAL: No joint swelling or deformity. EXTREMITIES: No cyanosis, clubbing, or pedal edema. NEUROLOGICAL: Gross neurological examination did not reveal any focal deficits. SKIN: No rashes. Assessment and plan -Acute renal failure: Prerenal azotemia secondary to severe dehydration from nausea vomiting. -Hypovolemic shock patient is on very low pressor support at this time continue and wean off pressors as tolerated. -Hypovolemic hyponatremia expected to improve with IV fluids -Peptic ulcer disease/gastritis: Patient will be continued on Protonix -Alcohol abuse history: Counseling was provided patient will be monitored for withdrawals -Atrial fibrillation controlled ventricular rate anticoagulated on Eliquis which was resumed -Hypertension -History of aortic stenosis with arctic valve placement in the past -Mildly elevated lipase nonspecific elevation not consistent with pancreatitis secondary to chronic alcohol use. DVT prophylaxis: Subcutaneous heparin Past Medical History Past Medical History: Atrial Fibrillation Additional Past Medical History / Comment(s): ulcer, hx pancreatitis, arthritis, aortic valve replacement at [facility] Nov 07 2010. History of Any Multi-Drug Resistant Organisms: MRSA Date of last positivie culture/infection: 2009 MDRO Source:: unknown Past Surgical History: Bowel Resection, Cardiac Valve Replacement, Heart Catheterization, Tonsillectomy Additional Past Surgical History / Comment(s): aortic valve replacement, surgery on rt elbow, left shoulder surgery, cardioversion 2023 Past Anesthesia/Blood Transfusion Reactions: No Reported Reaction Past Psychological History: No Psychological Hx Reported Smoking Status: Former smoker Past Alcohol Use History: Daily Past Drug Use History: Marijuana - Past Family History Father Family Medical History: Cancer Mother Family Medical History: Cancer Medications and Allergies Home Medications Medication Instructions Recorded Confirmed Type Metoprolol Tartrate [Lopressor] 50 mg PO BID 09/07/15 11/20/23 History Amiodarone [Cordarone] 200 mg PO BID 11/20/23 11/20/23 History Apixaban [Eliquis] 5 mg PO BID 11/20/23 11/20/23 History Valsartan [Diovan] 160 mg PO DAILY 11/20/23 11/20/23 History Allergies Allergy/AdvReac Type Severity Reaction Status Date / Time No Known Allergies Allergy Verified 11/20/23 15:39 Physical Exam Vitals: Vital Signs Temp Pulse Resp BP Pulse Ox 11/21/23 12:15 83 28 H 103/45 94 L 11/21/23 12:00 98.4 F 75 20 83/61 94 L 11/21/23 11:45 73 29 H 82/64 95 11/21/23 11:30 76 27 H 85/66 96 11/21/23 11:15 79 23 83/62 96 11/21/23 11:00 78 30 H 85/67 94 L 11/21/23 10:45 76 25 H 84/66 94 L 11/21/23 10:30 77 31 H 85/61 92 L 11/21/23 10:15 85 18 85/59 95 11/21/23 10:00 81 31 H 84/61 97 11/21/23 09:45 82 26 H 85/64 95 11/21/23 09:30 81 30 H 88/70 93 L 11/21/23 09:15 80 26 H 87/68 96 11/21/23 09:14 96 11/21/23 09:00 79 27 H 86/69 95 11/21/23 08:45 75 24 93/71 97 11/21/23 08:30 77 21 77/67 96 11/21/23 08:15 86 22 78/63 96 11/21/23 08:00 97.8 F 81 20 82/58 94 L 11/21/23 07:45 81 23 88/52 95 11/21/23 07:30 80 29 H 101/65 95 11/21/23 07:15 74 17 80/57 96 11/21/23 07:00 70 18 86/62 94 L 11/21/23 06:45 73 19 85/66 93 L 11/21/23 06:30 79 22 94/67 91 L 11/21/23 06:15 88 24 87/63 93 L 11/21/23 06:00 70 19 91/71 93 L 11/21/23 05:45 76 21 99/65 93 L 11/21/23 05:30 77 25 H 95/62 93 L 11/21/23 05:15 73 24 99/62 92 L 11/21/23 05:00 73 18 91/66 92 L 11/21/23 04:45 74 24 90/62 93 L 11/21/23 04:30 76 24 92/61 91 L 11/21/23 04:15 71 20 81/59 92 L 11/21/23 04:00 97.8 F 74 24 90/65 94 L 11/21/23 03:45 78 22 86/72 92 L 11/21/23 03:30 83 19 83/59 91 L 11/21/23 03:15 73 22 90/66 90 L 11/21/23 03:00 79 18 91/52 93 L 11/21/23 02:45 80 20 87/71 93 L 11/21/23 02:30 80 22 89/64 91 L 11/21/23 02:15 82 25 H 93 L 11/21/23 02:00 80 19 85/68 91 L 11/21/23 01:45 75 19 88/65 93 L 11/21/23 01:30 74 20 81/61 94 L 11/21/23 01:15 73 22 84/65 91 L 11/21/23 01:00 82 13 86/64 93 L 11/21/23 00:45 78 14 84/67 92 L 11/21/23 00:30 81 16 82/66 94 L 11/21/23 00:15 73 16 83/68 92 L 11/21/23 00:00 98.0 F 78 18 80/59 94 L 11/20/23 23:45 89 14 102/73 92 L 11/20/23 23:30 77 22 91/66 96 11/20/23 23:15 82 15 106/65 93 L 11/20/23 23:04 82 19 106/65 96 11/20/23 23:00 74 15 73/59 96 11/20/23 22:57 19 11/20/23 22:50 73 23 73/59 94 L 11/20/23 22:40 77 19 85/63 94 L 11/20/23 22:30 74 18 77/60 95 11/20/23 22:20 76 6 L 77/60 96 11/20/23 22:10 73 11 L 83/62 96 11/20/23 22:00 74 6 L 82/62 96 11/20/23 21:50 82 6 L 82/62 98 11/20/23 21:40 76 12 82/60 95 11/20/23 21:30 70 10 L 79/60 96 11/20/23 21:20 77 6 L 79/60 93 L 11/20/23 21:10 72 18 68/54 94 L 11/20/23 21:00 79 4 L 93/48 93 L 11/20/23 20:50 74 6 L 93/48 96 11/20/23 20:40 82 5 L 97/75 94 L 11/20/23 20:30 85 27 H 92/39 97 11/20/23 20:22 98.9 F 82 16 79/64 97 11/20/23 20:20 79/64 11/20/23 18:30 86 80/60 95 11/20/23 18:20 86 80/60 94 L 11/20/23 18:10 85 80/60 94 L 11/20/23 18:00 82 98 11/20/23 17:50 85 95 11/20/23 17:40 85 97 11/20/23 17:30 87 11/20/23 17:20 75 85/70 99 11/20/23 17:10 79 86/72 87 L 11/20/23 17:00 82 86/72 11/20/23 16:50 87/62 11/20/23 16:40 87/62 11/20/23 16:30 87/62 11/20/23 16:20 82 88/62 100 11/20/23 16:10 85 86/64 100 11/20/23 16:00 81 85/69 11/20/23 15:58 81 18 85/69 11/20/23 15:50 87 81/63 100 11/20/23 15:40 87 77/57 11/20/23 15:30 89 90/53 11/20/23 15:29 89 18 90/53 11/20/23 15:20 89 64/53 94 L 11/20/23 15:10 85 76/55 11/20/23 15:00 88 77/62 11/20/23 14:50 91 65/51 11/20/23 14:40 98 73/56 11/20/23 14:30 93 71/53 11/20/23 14:20 105 H 81/26 11/20/23 14:10 101 H 63/43 11/20/23 14:00 105 H 58/36 11/20/23 13:50 87/58 11/20/23 13:48 99.0 F 106 H 20 87/58 Intake and Output 11/20/2324 11/21/23 22:59 06:59 14:59 Intake Total 260 1490 873.673 Output Total 155 455 625 Balance 105 1035 248.673 Intake: Intake, IV Titration 260 1040 873.673 Amount Norepinephrine 4 mg In 93.673 Sodium Chloride 0.9% 250 ml @ 0.03 MCG/KG/MIN 8. 555 mls/hr IV .Q24H [facility] Rx#:[id number] Sodium Chloride 0.9% 1, 260 1040 780 000 ml @ 130 mls/hr IV . Q7H42M [facility] Rx#:[id number] Oral 450 Output: Urine 155 455 625 Other: Voiding Method Indwelling Catheter Indwelling Catheter Indwelling Catheter Weight 74.843 kg 80.3 kg Results CBC & Chem 7: 11/21/23 07:56 11/21/23 02:00 Labs: Abnormal Lab Results - Last 24 Hours (Table) 11/20/23 11/20/23 11/20/23 Range/Units 14:30 14:34 14:34 WBC 12.7 H (3.8-10.6) k/uL RBC (4.30-5.90) m/uL Hgb (13.0-17.5) gm/dL Hct (39.0-53.0) % Plt Count (150-450) k/uL Neutrophils # 9.2 H (1.3-7.7) k/uL Lymphocytes # (1.0-4.8) k/uL Monocytes # 1.1 H (0-1.0) k/uL PT 13.2 H (10.0-12.5) sec INR 1.3 H (<1.2) Sodium (137-145) mmol/L Chloride (98-107) mmol/L Carbon Dioxide (22-30) mmol/L BUN (9-20) mg/dL Creatinine (0.66-1.25) mg/dL Glucose (74-99) mg/dL POC Glucose (mg/dL) (70-110) mg/dL Plasma Lactic Acid Juno 7.5 H* (0.7-2.0) mmol/L Calcium (8.4-10.2) mg/dL Alkaline Phosphatase (38-126) U/L Troponin I (0.000-0.034) ng/mL Total Protein (6.3-8.2) g/dL Albumin (3.5-5.0) g/dL Lipase (23-300) U/L Urine Protein (Negative) Urine Ketones (Negative) 11/20/23 11/20/23 11/20/23 Range/Units 14:34 14:34 17:36 WBC (3.8-10.6) k/uL RBC (4.30-5.90) m/uL Hgb (13.0-17.5) gm/dL Hct (39.0-53.0) % Plt Count (150-450) k/uL Neutrophils # (1.3-7.7) k/uL Lymphocytes # (1.0-4.8) k/uL Monocytes # (0-1.0) k/uL PT (10.0-12.5) sec INR (<1.2) Sodium 133 L (137-145) mmol/L Chloride 85 L (98-107) mmol/L Carbon Dioxide (22-30) mmol/L BUN 129 H* (9-20) mg/dL Creatinine 7.71 H* (0.66-1.25) mg/dL Glucose (74-99) mg/dL POC Glucose (mg/dL) (70-110) mg/dL Plasma Lactic Acid Juno (0.7-2.0) mmol/L Calcium (8.4-10.2) mg/dL Alkaline Phosphatase 133 H (38-126) U/L Troponin I 0.040 H* (0.000-0.034) ng/mL Total Protein (6.3-8.2) g/dL Albumin (3.5-5.0) g/dL Lipase (23-300) U/L Urine Protein Trace H (Negative) Urine Ketones 1+ H (Negative) 11/20/23 11/20/23 11/20/23 Range/Units 20:27 20:42 20:42 WBC (3.8-10.6) k/uL RBC (4.30-5.90) m/uL Hgb (13.0-17.5) gm/dL Hct (39.0-53.0) % Plt Count 147 L (150-450) k/uL Neutrophils # (1.3-7.7) k/uL Lymphocytes # 0.6 L (1.0-4.8) k/uL Monocytes # (0-1.0) k/uL PT (10.0-12.5) sec INR (<1.2) Sodium 135 L (137-145) mmol/L Chloride (98-107) mmol/L Carbon Dioxide 17 L (22-30) mmol/L BUN 109 H* (9-20) mg/dL Creatinine 5.43 H (0.66-1.25) mg/dL Glucose 123 H (74-99) mg/dL POC Glucose (mg/dL) 133 H (70-110) mg/dL Plasma Lactic Acid Juno (0.7-2.0) mmol/L Calcium 7.6 L (8.4-10.2) mg/dL Alkaline Phosphatase (38-126) U/L Troponin I (0.000-0.034) ng/mL Total Protein (6.3-8.2) g/dL Albumin (3.5-5.0) g/dL Lipase (23-300) U/L Urine Protein (Negative) Urine Ketones (Negative) 11/20/23 11/21/23 11/21/23 Range/Units 23:13 02:00 02:00 WBC (3.8-10.6) k/uL RBC 4.22 L (4.30-5.90) m/uL Hgb 12.7 L (13.0-17.5) gm/dL Hct 38.2 L (39.0-53.0) % Plt Count (150-450) k/uL Neutrophils # (1.3-7.7) k/uL Lymphocytes # 0.5 L (1.0-4.8) k/uL Monocytes # (0-1.0) k/uL PT (10.0-12.5) sec INR (<1.2) Sodium 132 L (137-145) mmol/L Chloride (98-107) mmol/L Carbon Dioxide 21 L (22-30) mmol/L BUN 105 H* (9-20) mg/dL Creatinine 4.60 H (0.66-1.25) mg/dL Glucose 115 H (74-99) mg/dL POC Glucose (mg/dL) (70-110) mg/dL Plasma Lactic Acid Juno (0.7-2.0) mmol/L Calcium 7.4 L (8.4-10.2) mg/dL Alkaline Phosphatase (38-126) U/L Troponin I (0.000-0.034) ng/mL Total Protein 5.2 L (6.3-8.2) g/dL Albumin 2.7 L (3.5-5.0) g/dL Lipase 317 H (23-300) U/L Urine Protein (Negative) Urine Ketones (Negative) 11/21/23 Range/Units 07:56 WBC (3.8-10.6) k/uL RBC (4.30-5.90) m/uL Hgb (13.0-17.5) gm/dL Hct (39.0-53.0) % Plt Count (150-450) k/uL Neutrophils # (1.3-7.7) k/uL Lymphocytes # 0.8 L (1.0-4.8) k/uL Monocytes # (0-1.0) k/uL PT (10.0-12.5) sec INR (<1.2) Sodium (137-145) mmol/L Chloride (98-107) mmol/L Carbon Dioxide (22-30) mmol/L BUN (9-20) mg/dL Creatinine (0.66-1.25) mg/dL Glucose (74-99) mg/dL POC Glucose (mg/dL) (70-110) mg/dL Plasma Lactic Acid Juno (0.7-2.0) mmol/L Calcium (8.4-10.2) mg/dL Alkaline Phosphatase (38-126) U/L Troponin I (0.000-0.034) ng/mL Total Protein (6.3-8.2) g/dL Albumin (3.5-5.0) g/dL Lipase (23-300) U/L Urine Protein (Negative) Urine Ketones (Negative) Thrombosis Risk Factor Assmnt - Choose All That Apply Any of the Below Risk Factors Present?: No Each Risk Factor Represents 2 Points: Age 61-74 years Thrombosis Risk Factor Assessment Total Risk Factor Score: 2 Thrombosis Risk Factor Assessment Level: Low Risk
--- NOTE | 2023-11-21 16:26 | P.NPCON ---
History of Present Illness - Reason for Consult acute renal failure - History of Present Illness Patient is a 63-year-old male who was admitted to the hospital with complaints of increased weakness nausea and vomiting. Patient admitted with decreased oral intake a few days prior to admission. No previous history of kidney diseases. Blood pressure has been low with systolic in the 70s. Patient has been feeling lightheaded and dizzy. Status post 4 L of fluid bolus. Currently with indwelling Horton catheter. Serum creatinine was 7.7 on initial admission and decreased to 4.6 today. Maintained on angiotensin receptor blockers at home, currently on hold. Started on Levophed early this morning. Review of Systems As per HPI Past Medical History Past Medical History: Atrial Fibrillation Additional Past Medical History / Comment(s): ulcer, hx pancreatitis, arthritis, aortic valve replacement at [facility] Nov 07 2010. History of Any Multi-Drug Resistant Organisms: MRSA Date of last positivie culture/infection: 2009 MDRO Source:: unknown Past Surgical History: Bowel Resection, Cardiac Valve Replacement, Heart Catheterization, Tonsillectomy Additional Past Surgical History / Comment(s): aortic valve replacement, surgery on rt elbow, left shoulder surgery, cardioversion 2023 Past Anesthesia/Blood Transfusion Reactions: No Reported Reaction Past Psychological History: No Psychological Hx Reported Smoking Status: Former smoker Past Alcohol Use History: Daily Past Drug Use History: Marijuana - Past Family History Father Family Medical History: Cancer Mother Family Medical History: Cancer Medications and Allergies Home Medications Medication Instructions Recorded Confirmed Type Metoprolol Tartrate [Lopressor] 50 mg PO BID 09/07/15 11/20/23 History Amiodarone [Cordarone] 200 mg PO BID 11/20/23 11/20/23 History Apixaban [Eliquis] 5 mg PO BID 11/20/23 11/20/23 History Valsartan [Diovan] 160 mg PO DAILY 11/20/23 11/20/23 History Allergies Allergy/AdvReac Type Severity Reaction Status Date / Time No Known Allergies Allergy Verified 11/20/23 15:39 Physical Exam Vitals: Vital Signs Temp Pulse Resp BP Pulse Ox 11/21/23 16:00 98.0 F 73 10 L 82/60 96 11/21/23 15:45 74 29 H 79/58 93 L 11/21/23 15:30 71 28 H 75/59 96 11/21/23 15:15 73 23 78/60 93 L 11/21/23 15:00 74 14 75/59 92 L 11/21/23 14:45 79 28 H 77/57 93 L 11/21/23 14:30 78 21 71/53 95 11/21/23 14:15 73 29 H 71/50 83 L 11/21/23 14:00 78 25 H 77/55 90 L 11/21/23 13:45 82 27 H 81/62 89 L 11/21/23 13:30 76 22 88/69 91 L 11/21/23 13:15 75 29 H 84/59 93 L 11/21/23 13:00 87 24 86/64 93 L 11/21/23 12:45 78 21 84/62 93 L 11/21/23 12:30 90 42 H 101/60 93 L 11/21/23 12:15 83 28 H 103/45 94 L 11/21/23 12:00 98.4 F 75 20 83/61 94 L 11/21/23 11:45 73 29 H 82/64 95 11/21/23 11:30 76 27 H 85/66 96 11/21/23 11:15 79 23 83/62 96 11/21/23 11:00 78 30 H 85/67 94 L 11/21/23 10:45 76 25 H 84/66 94 L 11/21/23 10:30 77 31 H 85/61 92 L 11/21/23 10:15 85 18 85/59 95 11/21/23 10:00 81 31 H 84/61 97 11/21/23 09:45 82 26 H 85/64 95 11/21/23 09:30 81 30 H 88/70 93 L 11/21/23 09:15 80 26 H 87/68 96 11/21/23 09:14 96 11/21/23 09:00 79 27 H 86/69 95 11/21/23 08:45 75 24 93/71 97 11/21/23 08:30 77 21 77/67 96 11/21/23 08:15 86 22 78/63 96 11/21/23 08:00 97.8 F 81 20 82/58 94 L 11/21/23 07:45 81 23 88/52 95 11/21/23 07:30 80 29 H 101/65 95 11/21/23 07:15 74 17 80/57 96 11/21/23 07:00 70 18 86/62 94 L 11/21/23 06:45 73 19 85/66 93 L 11/21/23 06:30 79 22 94/67 91 L 11/21/23 06:15 88 24 87/63 93 L 11/21/23 06:00 70 19 91/71 93 L 11/21/23 05:45 76 21 99/65 93 L 11/21/23 05:30 77 25 H 95/62 93 L 11/21/23 05:15 73 24 99/62 92 L 11/21/23 05:00 73 18 91/66 92 L 11/21/23 04:45 74 24 90/62 93 L 11/21/23 04:30 76 24 92/61 91 L 11/21/23 04:15 71 20 81/59 92 L 11/21/23 04:00 97.8 F 74 24 90/65 94 L 11/21/23 03:45 78 22 86/72 92 L 11/21/23 03:30 83 19 83/59 91 L 11/21/23 03:15 73 22 90/66 90 L 11/21/23 03:00 79 18 91/52 93 L 11/21/23 02:45 80 20 87/71 93 L 11/21/23 02:30 80 22 89/64 91 L 11/21/23 02:15 82 25 H 93 L 11/21/23 02:00 80 19 85/68 91 L 11/21/23 01:45 75 19 88/65 93 L 11/21/23 01:30 74 20 81/61 94 L 11/21/23 01:15 73 22 84/65 91 L 11/21/23 01:00 82 13 86/64 93 L 11/21/23 00:45 78 14 84/67 92 L 11/21/23 00:30 81 16 82/66 94 L 11/21/23 00:15 73 16 83/68 92 L 11/21/23 00:00 98.0 F 78 18 80/59 94 L 11/20/23 23:45 89 14 102/73 92 L 11/20/23 23:30 77 22 91/66 96 11/20/23 23:15 82 15 106/65 93 L 11/20/23 23:04 82 19 106/65 96 11/20/23 23:00 74 15 73/59 96 11/20/23 22:57 19 11/20/23 22:50 73 23 73/59 94 L 11/20/23 22:40 77 19 85/63 94 L 11/20/23 22:30 74 18 77/60 95 11/20/23 22:20 76 6 L 77/60 96 11/20/23 22:10 73 11 L 83/62 96 11/20/23 22:00 74 6 L 82/62 96 11/20/23 21:50 82 6 L 82/62 98 11/20/23 21:40 76 12 82/60 95 11/20/23 21:30 70 10 L 79/60 96 11/20/23 21:20 77 6 L 79/60 93 L 11/20/23 21:10 72 18 68/54 94 L 11/20/23 21:00 79 4 L 93/48 93 L 11/20/23 20:50 74 6 L 93/48 96 11/20/23 20:40 82 5 L 97/75 94 L 11/20/23 20:30 85 27 H 92/39 97 11/20/23 20:22 98.9 F 82 16 79/64 97 11/20/23 20:20 79/64 11/20/23 18:30 86 80/60 95 11/20/23 18:20 86 80/60 94 L 11/20/23 18:10 85 80/60 94 L 11/20/23 18:00 82 98 11/20/23 17:50 85 95 11/20/23 17:40 85 97 11/20/23 17:30 87 11/20/23 17:20 75 85/70 99 11/20/23 17:10 79 86/72 87 L 11/20/23 17:00 82 86/72 11/20/23 16:50 87/62 11/20/23 16:40 87/62 11/20/23 16:30 87/62 11/20/23 16:20 82 88/62 100 Intake and Output 11/21/23 11/21/23 11/21/23 06:59 14:59 22:59 Intake Total 1490 1313.673 253.334 Output Total 455 700 150 Balance 1035 613.673 103.334 Intake: IV 910 230 Sodium Chloride 0.9% 1, 910 230 000 ml @ 100 mls/hr IV . Q10H [facility] Rx#:[id number] Intake, IV Titration 1040 223.673 23.334 Amount Norepinephrine 4 mg In 93.673 23.334 Sodium Chloride 0.9% 250 ml @ 0.03 MCG/KG/MIN 8. 555 mls/hr IV .Q24H [facility] Rx#:[id number] Sodium Chloride 0.9% 1, 1040 130 000 ml @ 100 mls/hr IV . Q10H [facility] Rx#:[id number] Oral 450 180 Output: Urine 455 700 150 Other: Voiding Method Indwelling Catheter Indwelling Catheter Weight 80.3 kg Patient is comfortable awake not in any acute distress. Examination of the heart S1 and S2 Examination of the lungs bilateral breath sounds are heard Abdomen is soft nontender Examination of lower extremities shows no significant edema. SUL[employer]IVER exam grossly intact Results - Lab Results Most recent lab results Calcium 7.4 mg/dL (8.4-10.2) L 11/21/23 02:00 Magnesium 1.8 mg/dL (1.6-2.3) 11/20/23 20:42 11/21/23 07:56 11/21/23 02:00 Assessment and Plan Assessment: 1. Acute kidney injury, nonoliguric ATN secondary to hypotension in the setting of use of angiotensin receptor blockers. Definitely of a component of hypovolemia is present. No evidence of hydronephrosis on ultrasound. 2. Hypotension associated with hypovolemia rule out underlying infection. 3. Anion gap metabolic acidosis secondary to acute kidney injury and lactic acidosis, currently improved 4. Hypotension associated with hypovolemia. Rule out adrenal insufficiency. 5. Chronic A-fib maintained on anticoagulation. Rate is controlled. Plan: Continue IV fluids Repeat labs in a.m. Continue to hold all antihypertensive medications Check cortisol level, will need to be drawn off of blood from yesterday as pt received hydrocortisone in ER. Thank you for the consultation. We will continue to follow the patient with you during his hospitalization Time with Patient: Greater than 30
[2023-11-21 17:57] LABS: Glucose,Whole Blood 117 mg/dL (70-110)
[2023-11-21] MEDS: ONDANSETRON 4 MG/2 ML VIAL IVP PRN (18:20)
[2023-11-21] MEDS: TERBUTALINE 1 MG/ML VIAL SQ ONE (19:16)
[2023-11-21] MEDS: ACETAMINOPHEN TAB 325 MG TAB PO PRN (19:47)
[2023-11-21 23:21] LABS: Glucose,Whole Blood 157 mg/dL (70-110)
[2023-11-22 06:20] LABS: Basophils # (A) 0.1 k/uL (0-0.2); Basophils % (A) 1 %; Eosinophils # (A) 0.1 k/uL (0-0.7); Eosinophils % (A) 1 %; HCT 34.8 % (39.0-53.0); HGB 11.6 gm/dL (13.0-17.5); Lymphocytes # (A) 0.9 k/uL (1.0-4.8); Lymphocytes % (A) 14 %; MCH 30.4 pg (25.0-35.0); MCHC 33.2 g/dL (31.0-37.0); MCV 91.4 fL (80.0-100.0); Mean Platelet Volume 11.6; Monocytes # (A) 0.6 k/uL (0-1.0); Monocytes % (A) 10 %; Neutrophils # (A) 4.5 k/uL (1.3-7.7); Neutrophils % (A) 72 %; Platelet Count 118 k/uL (150-450); RBC 3.81 m/uL (4.30-5.90); RDW 15.2 % (11.5-15.5); WBC 6.3 k/uL (3.8-10.6)
[2023-11-22 06:33] LABS: African American GFR (CKD) 46 (>60 ml/min/1.73 sqM); Anion Gap 6 mmol/L; Blood Urea Nitrogen 53 mg/dL (9-20); Calcium 7.6 mg/dL (8.4-10.2); Carbon Dioxide 21 mmol/L (22-30); Chloride 111 mmol/L (98-107); Glucose 125 mg/dL (74-99); Non-African American GFR(CKD) 40 (>60 ml/min/1.73 sqM); Potassium 3.4 mmol/L (3.5-5.1); Sodium 138 mmol/L (137-145)
[2023-11-22] MEDS: THIAMINE 100 MG TAB PO SCH (09:03)
[2023-11-22] MEDS: POTASSIUM CHLORIDE ER 20 MEQ TAB.ER PO STA (09:03)
--- NOTE | 2023-11-22 10:54 | P.PN ---
Subjective Progress Note Date: 11/22/23 I am seeing this patient in consultation today 11/21/2023 in the intensive care unit after he was admitted for intractable nausea and vomiting, severe dehydration, and acute kidney injury. Blood pressure was hypotensive in the emergency room despite adequate fluid resuscitation, requiring low-dose norepi nephrine, and admission to the intensive care unit. Patient is a 63-year-old white male with past medical history significant for aortic valve replacement, atrial fibrillation, alcoholism, and chronic pancreatitis. Patient reports intractable nausea and vomiting over the last week. No fever. He is not able to keep any oral fluids or food down. He has been severely weak. He has been dizzy especially on arising. Reports multiple near syncopal events where he is fallen on the floor. Patient states that he has drinks alcohol, approximately 6-12 beers per day, but has not had anything over the last week. He denies any hematemesis, diarrhea, melena, constipation. He does report some mild right lower quadrant abdominal pain. Nonradiating. Abdomen is soft and does not appear acute. No guarding with palpation or rigidity. Patient is currently lying in bed, on 2 L/min nasal cannula, in no acute distress. SpO2 is 95%. Denies any shortness of breath. Denies any URI-like symptoms. Negative for influenza, RSV, COVID. Chest x-ray does not show any acute cardiopulmonary findings. D enies chest pain. Does report intermittent heart palpitations and lightheadedness. 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 He is also on losartan and metoprolol outpatient. Heart rhythm is currently atrial fibrillation with controlled ventricular rate of around 70 bpm. Blood pressure remains hypotensive despite multiple fluid boluses given in ER, I am told a total of 4 L of crystalloid fluid was given. Normal saline is currently infusing at 130 MLS per hour. Patient is currently on low-dose norepinephrine infusing at 0.02 mcg/kg/min or 1.5 mcg/min. He has sustained acute kidney injury. Ultrasound of the kidneys and bladder did not show any obstructive uropathy or hydronephrosis. Most recent BMP from last night includes a sodium 135, potassium 4.2, chloride 102, serum bicarb 17, BUN and creatinine down to 109 and 5.43 respectively, glucose 123. Most recent CBC from last night was unremarkable, no leukocytosis. Lactic acid level was elevated at 7.5 and is down to 1.4. Troponin was also elevated at 0.4 and is down to 0.026 on redraw. Lipase was only mildly elevated at 317. AST 35, ALT 28, ALP 133. Urinalysis not concerning for UTI. He does have a indwelling urinary catheter, and is making urine in the order of approximately 50 cc/h. Currently, the patient is resting comfortably. No further nausea or vomiting. He is tolerating a minimal amount of clear liquids. The patient is seen today November 22, 2023 in follow-up in the intensive care unit. He is currently resting comfortably in bed. Awake and alert in no acute distress. He is feeling better today compared to yesterday. He is still requiring norepinephrine at 4 mcg/min. He has normal saline at 100 MLS per hour. He remains in atrial fibrillation. He is maintaining good O2 saturations in the 90s on room air. His cortisol level was 38.1. Thyroid function normal. He is anticoagulated with Eliquis. White count 6.3. Hemoglobin 11.6. Platel ets 118. Sodium 138. Potassium 3.4. Bicarb 21. BUN 53. Creatinine 1.78. Glucose 125. Blood culture revealing no growth. Objective - Vital Signs Vital signs: Vital Signs Temp 98.4 F 11/22/23 08:00 Pulse 96 11/22/23 10:00 Resp 27 H 11/22/23 10:00 BP 105/77 11/22/23 10:00 Pulse Ox 92 L 11/22/23 09:30 FiO2 Intake & Output 11/21/23 11/22/23 11/22/23 18:59 06:59 18:59 Intake Total 4205.717 0560.322 652.648 Output Total 1035 1160 400 Balance 780.579 239.322 252.648 Weight 84 kg Intake: IV 1340 1200 400 Sodium Chloride 0.9% 1, 1340 1200 400 000 ml @ 100 mls/hr IV . Q10H [facility] Rx#:[id number] Intake, IV Titration 295.579 79.322 252.648 Amount Norepinephrine 4 mg In 165.579 79.322 252.648 Sodium Chloride 0.9% 250 ml @ 0.03 MCG/KG/MIN 8. 555 mls/hr IV .Q24H [facility] Rx#:[id number] Sodium Chloride 0.9% 1, 130 000 ml @ 100 mls/hr IV . Q10H [facility] Rx#:[id number] Oral 180 120 Output: Urine 1035 1160 400 Other: Voiding Method Indwelling Catheter Indwelling Catheter Indwelling Catheter - Exam GENERAL EXAM: Alert, 63-year-old male, on room air. Comfortable in no apparent distress. HEAD: Normocephalic and atraumatic EYES: Normal reaction of pupils, equal size. NOSE: Clear with pink turbinates. THROAT: Dry mucous membranes, No erythema or exudates. NECK: No masses, no JVD. CHEST: No chest wall deformity. LUNGS: Equal air entry with no crackles, wheeze, rhonchi or dullness. No conversational dyspnea. CVS: S1 and S2 normal with no audible murmur, irregular rhythm. No extra heart sounds ABDOMEN: Abdomen is flat. Active bowel sounds. No hepatosplenomegaly. No guarding or rigidity. SPINE: No scoliosis or deformity SKIN: No rashes CENTRAL NERVOUS SYSTEM: No focal deficits, tone is normal in all 4 extremities. EXTREMITIES: There is no peripheral edema, clubbing, or cyanosis. Peripheral pulses are intact. - Labs CBC & Chem 7: 11/22/23 06:06 11/22/23 06:06 Labs: Abnormal Lab Results - Last 24 Hours (Table) 11/21/23 11/21/23 11/21/23 Range/Units 02:00 17:55 23:19 RBC (4.30-5.90) m/uL Hgb (13.0-17.5) gm/dL Hct (39.0-53.0) % Plt Count (150-450) k/uL Lymphocytes # (1.0-4.8) k/uL Potassium (3.5-5.1) mmol/L Chloride (98-107) mmol/L Carbon Dioxide (22-30) mmol/L BUN (9-20) mg/dL Creatinine (0.66-1.25) mg/dL Glucose (74-99) mg/dL POC Glucose (mg/dL) 117 H 157 H (70-110) mg/dL Calcium (8.4-10.2) mg/dL Cortisol 38.1 H (3.1-22.4) UG/DL 11/22/23 11/22/23 Range/Units 06:06 06:06 RBC 3.81 L (4.30-5.90) m/uL Hgb 11.6 L (13.0-17.5) gm/dL Hct 34.8 L (39.0-53.0) % Plt Count 118 L (150-450) k/uL Lymphocytes # 0.9 L (1.0-4.8) k/uL Potassium 3.4 L (3.5-5.1) mmol/L Chloride 111 H (98-107) mmol/L Carbon Dioxide 21 L (22-30) mmol/L BUN 53 H (9-20) mg/dL Creatinine 1.78 H (0.66-1.25) mg/dL Glucose 125 H (74-99) mg/dL POC Glucose (mg/dL) (70-110) mg/dL Calcium 7.6 L (8.4-10.2) mg/dL Cortisol (3.1-22.4) UG/DL Microbiology - Last 24 Hours (Table) 11/20/23 17:45 Blood Culture - Preliminary Blood Assessment and Plan Assessment: Intractable nausea and vomiting and severe dehydration suspect secondary to a GI virus Refractory hypotension and suspected hypovolemic shock, secondary to above Lactic acidosis, improved Abdominal pain, currently under investigation Acute kidney injury, secondary to severe dehydration, improving Atrial fibrillation with controlled ventricular rate, normally anticoagulated on Eliquis History of hypertension History of aortic stenosis, status post aortic valve replacement Alcoholism, drinks 6-12 beers per day History of chronic pancreatitis Plan: The patient was seen and evaluated Labs and medications reviewed Feeling quite a bit better today Tolerating a diet Titrate off the norepinephrine Continue fluid resuscitation Nephrology is following Remains on the CIWA protocol We will continue to follow I have personally seen and examined the patient, performed the documentation and the assessment and plan as written. Number of minutes spent on the visit: 10.
[2023-11-22] MEDS: MAG HYDROX/AL HYDROX/SIMETH 30 ML CUP PO PRN (11:59)
--- NOTE | 2023-11-22 13:31 | P.PN ---
Subjective Patient is seen for follow-up for acute kidney injury. Renal function has improved. Patient is maintained on IV fluids. He is also maintained on low-dose of Levophed which is being decreased. Serum creatinine improved to 1.7 from 7.7 on initial admission. No significant complaints today. Objective - Vital Signs Vital signs: Vital Signs Temp 98.1 F 11/22/23 11:30 Pulse 96 11/22/23 13:00 Resp 22 11/22/23 13:00 BP 107/82 11/22/23 13:00 Pulse Ox 94 L 11/22/23 13:00 FiO2 Intake & Output 11/21/23 11/22/23 11/22/23 18:59 06:59 18:59 Intake Total 8741.310 6676.322 972.277 Output Total 1035 1160 725 Balance 780.579 239.322 247.277 Weight 84 kg Intake: IV 1340 1200 700 Sodium Chloride 0.9% 1, 1340 1200 700 000 ml @ 100 mls/hr IV . Q10H [facility] Rx#:[id number] Intake, IV Titration 295.579 79.322 272.277 Amount Norepinephrine 4 mg In 165.579 79.322 272.277 Sodium Chloride 0.9% 250 ml @ 0.03 MCG/KG/MIN 8. 555 mls/hr IV .Q24H [facility] Rx#:[id number] Sodium Chloride 0.9% 1, 130 000 ml @ 100 mls/hr IV . Q10H [facility] Rx#:[id number] Oral 180 120 Output: Urine 1035 1160 725 Other: Voiding Method Indwelling Catheter Indwelling Catheter Indwelling Catheter - Exam Patient is comfortable awake not in any acute distress. Examination of the heart S1 and S2 Examination of the lungs bilateral breath sounds are heard Abdomen is soft nontender Examination of lower extremities shows no significant edema. 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 - Labs CBC & Chem 7: 11/22/23 06:06 11/22/23 06:06 Labs: Abnormal Lab Results - Last 24 Hours (Table) 11/21/23 11/21/23 11/21/23 Range/Units 02:00 17:55 23:19 RBC (4.30-5.90) m/uL Hgb (13.0-17.5) gm/dL Hct (39.0-53.0) % Plt Count (150-450) k/uL Lymphocytes # (1.0-4.8) k/uL Potassium (3.5-5.1) mmol/L Chloride (98-107) mmol/L Carbon Dioxide (22-30) mmol/L BUN (9-20) mg/dL Creatinine (0.66-1.25) mg/dL Glucose (74-99) mg/dL POC Glucose (mg/dL) 117 H 157 H (70-110) mg/dL Calcium (8.4-10.2) mg/dL Cortisol 38.1 H (3.1-22.4) UG/DL 11/22/23 11/22/23 Range/Units 06:06 06:06 RBC 3.81 L (4.30-5.90) m/uL Hgb 11.6 L (13.0-17.5) gm/dL Hct 34.8 L (39.0-53.0) % Plt Count 118 L (150-450) k/uL Lymphocytes # 0.9 L (1.0-4.8) k/uL Potassium 3.4 L (3.5-5.1) mmol/L Chloride 111 H (98-107) mmol/L Carbon Dioxide 21 L (22-30) mmol/L BUN 53 H (9-20) mg/dL Creatinine 1.78 H (0.66-1.25) mg/dL Glucose 125 H (74-99) mg/dL POC Glucose (mg/dL) (70-110) mg/dL Calcium 7.6 L (8.4-10.2) mg/dL Cortisol (3.1-22.4) UG/DL Microbiology - Last 24 Hours (Table) 11/20/23 17:45 Blood Culture - Preliminary Blood Assessment and Plan Assessment: 1. Acute kidney injury, nonoliguric ATN secondary to hypotension in the setting of use of angiotensin receptor blockers. Definitely of a component of hypovolemia is present. No evidence of hydronephrosis on ultrasound. 2. Hypotension associated with hypovolemia rule out underlying infection. 3. Anion gap metabolic acidosis secondary to acute kidney injury and lactic acidosis, currently improved 4. Hypotension associated with hypovolemia. Cortisol was not low. 5. Chronic A-fib maintained on anticoagulation. Rate is controlled. Plan: Continue IV fluids Repeat labs in a.m. Replace potassium Continue to hold all antihypertensive medications
--- NOTE | 2023-11-22 15:15 | P.PN ---
Subjective Progress Note Date: 11/22/23 Patient pleasant 63-year-old male is admitted for acute renal failure with creatinine going up to 7.1 on admission came down to 4.6 with IV fluids. Patient has not been eating or drinking for 1 week secondary to nausea vomiting which is again secondary to gastroesophageal reflux disease or gastritis or pe ptic ulcer disease. Patient has multiple near syncopal episodes patient was in hypovolemic shock requiring pressor support IV fluids and was admitted to ICU patient is feeling much better at this time he is on diet. Patient has mild nonspecific elevation of lipase present creatinine is 4.6 patient had leukocytosis which improved no evidence of infection at this time patient has mild elevated of troponin on admission secondary to renal failure which improved at this time patient does not have any chest pain or EKG changes chest x-ray did not show any significant abnormality. 11/22/2023 Patient is evaluated today in the intensive care unit. He is alert and oriented x 3. He is being weaned off of pressor support and his blood pressure has maintained in the 100s systolic. He reports minimal nausea today has not had any vomiting. His white count today is 6.3, hemoglobin 11.6, sodium 138, potassium 3.4, chloride of 111, CO2 of 21, BUN of 53, creatinine of 1.78, calcium 7.6. Echocardiogram comes back showing an EF of 60 to 65% with no significant valvular dysfunction and no obvious regional wall motion abnormalities. Tentatively plan for downgrade from the ICU today. Review of Systems Constitutional: Denied any fatigue denied any fever. Cardio vascular: denied any chest pain, palpitations Gastrointestinal: denied any nausea, vomiting, diarrhea Pulmonary: Denied any shortness of breath cough Neurologic denied any new focal deficits All inpatient medications were reviewed and appropriate changes in these medications as dictated in the interval history and assessment and plan. PHYSICAL EXAMINATION: GENERAL: The patient is alert and oriented x3, not in any acute distress. Well developed, well nourished. HEENT: Pupils are round and equally reacting to light. EOMI. No scleral icterus. No conjunctival pallor. Normocephalic, atraumatic. No pharyngeal erythema. No thyromegaly. CARDIOVASCULAR: S1 and S2 present. No murmurs, rubs, or gallops. PULMONARY: Chest is clear to auscultation, no wheezing or crackles. ABDOMEN: Soft, nontender, nondistended, normoactive bowel sounds. No palpable organomegaly. MUSCULOSKELETAL: No joint swelling or deformity. EXTREMITIES: No cyanosis, clubbing, or pedal edema. NEUROLOGICAL: Gross neurological examination did not reveal any focal deficits. SKIN: No rashes. Assessment and plan -Acute renal failure: Prerenal azotemia secondary to severe dehydration from nausea vomiting/ATN recommend to avoid nephrotoxic agents ARB has been placed on hold. -Hypovolemic shock patient did require vasopressor support he has been weaned off of Levophed and blood pressure is maintaining in the 100 systolic. -Hypovolemic hyponatremia improving patient will be continued on normal saline overnight with repeat labs in the morning. -Peptic ulcer disease/gastritis: Patient will be continued on Protonix -Alcohol abuse history: Counseling was provided patient will be monitored for withdrawals -Atrial fibrillation controlled ventricular rate anticoagulated on Eliquis which was resumed -Hypertension currently hypotensive and hypovolemic shock as above -History of aortic stenosis with arctic valve placement in the past -Mildly elevated lipase nonspecific elevation not consistent with pancreatitis secondary to chronic alcohol use. DVT prophylaxis: Subcutaneous heparin The impression and plan of care has been dictated by Chen Wagner, Nurse Practitioner as directed. Dr. Leah MD I have performed a history and physical examination and medical decision making of this patient, discussed the same with the dictator, and agree with the dictators assessment and plan as written, documented as a scribe. Based on total visit time, I have performed more than 50% of this visit. Objective - Vital Signs Vital signs: Vital Signs Temp 98.4 F 11/22/23 08:00 Pulse 93 11/22/23 08:15 Resp 17 11/22/23 08:00 BP 114/84 11/22/23 08:15 Pulse Ox 94 L 11/22/23 08:00 FiO2 Intake & Output 11/21/23 11/22/23 11/22/23 18:59 06:59 18:59 Intake Total 0629.538 0574.322 430.881 Output Total 1035 1160 250 Balance 780.579 239.322 180.881 Weight 84 kg Intake: IV 1340 1200 200 Sodium Chloride 0.9% 1, 1340 1200 200 000 ml @ 100 mls/hr IV . Q10H [facility] Rx#:[id number] Intake, IV Titration 295.579 79.322 230.881 Amount Norepinephrine 4 mg In 165.579 79.322 230.881 Sodium Chloride 0.9% 250 ml @ 0.03 MCG/KG/MIN 8. 555 mls/hr IV .Q24H [facility] Rx#:[id number] Sodium Chloride 0.9% 1, 130 000 ml @ 100 mls/hr IV . Q10H [facility] Rx#:[id number] Oral 180 120 Output: Urine 1035 1160 250 Other: Voiding Method Indwelling Catheter Indwelling Catheter - Labs CBC & Chem 7: 11/22/23 06:06 11/22/23 06:06 Labs: Abnormal Lab Results - Last 24 Hours (Table) 11/21/23 11/21/23 11/21/23 Range/Units 02:00 17:55 23:19 RBC (4.30-5.90) m/uL Hgb (13.0-17.5) gm/dL Hct (39.0-53.0) % Plt Count (150-450) k/uL Lymphocytes # (1.0-4.8) k/uL Potassium (3.5-5.1) mmol/L Chloride (98-107) mmol/L Carbon Dioxide (22-30) mmol/L BUN (9-20) mg/dL Creatinine (0.66-1.25) mg/dL Glucose (74-99) mg/dL POC Glucose (mg/dL) 117 H 157 H (70-110) mg/dL Calcium (8.4-10.2) mg/dL Cortisol 38.1 H (3.1-22.4) UG/DL 11/22/23 11/22/23 Range/Units 06:06 06:06 RBC 3.81 L (4.30-5.90) m/uL Hgb 11.6 L (13.0-17.5) gm/dL Hct 34.8 L (39.0-53.0) % Plt Count 118 L (150-450) k/uL Lymphocytes # 0.9 L (1.0-4.8) k/uL Potassium 3.4 L (3.5-5.1) mmol/L Chloride 111 H (98-107) mmol/L Carbon Dioxide 21 L (22-30) mmol/L BUN 53 H (9-20) mg/dL Creatinine 1.78 H (0.66-1.25) mg/dL Glucose 125 H (74-99) mg/dL POC Glucose (mg/dL) (70-110) mg/dL Calcium 7.6 L (8.4-10.2) mg/dL Cortisol (3.1-22.4) UG/DL Microbiology - Last 24 Hours (Table) 11/20/23 17:45 Blood Culture - Preliminary Blood Assessment and Plan Time with Patient: Less than 30
[2023-11-23 04:13] LABS: Basophils # (A) 0.1 k/uL (0-0.2); Basophils % (A) 1 %; Eosinophils # (A) 0.2 k/uL (0-0.7); Eosinophils % (A) 3 %; HCT 35.1 % (39.0-53.0); HGB 11.6 gm/dL (13.0-17.5); Lymphocytes # (A) 0.9 k/uL (1.0-4.8); Lymphocytes % (A) 18 %; MCH 30.7 pg (25.0-35.0); MCV 93.1 fL (80.0-100.0); Mean Platelet Volume 11.2; Monocytes # (A) 0.5 k/uL (0-1.0); Monocytes % (A) 9 %; Neutrophils # (A) 3.4 k/uL (1.3-7.7); Neutrophils % (A) 67 %; Platelet Count 102 k/uL (150-450); RBC 3.77 m/uL (4.30-5.90); RDW 15.2 % (11.5-15.5)
[2023-11-23 04:23] LABS: African American GFR (CKD) 74 (>60 ml/min/1.73 sqM); Anion Gap 1 mmol/L; Blood Urea Nitrogen 26 mg/dL (9-20); Calcium 7.4 mg/dL (8.4-10.2); Carbon Dioxide 23 mmol/L (22-30); Chloride 116 mmol/L (98-107); Glucose 95 mg/dL (74-99); Non-African American GFR(CKD) 64 (>60 ml/min/1.73 sqM); Potassium 4.3 mmol/L (3.5-5.1); Sodium 140 mmol/L (137-145)
[2023-11-23 04:27] LABS: Magnesium 0.8 mg/dL (1.6-2.3)
[2023-11-23] MEDS ORDERED: Magnesium Replacement Protocol 1 EACH MISC MISCELLANE PRN (04:33)
[2023-11-23] MEDS: MAGNESIUM SULFATE-D5W PMX 1 GM in DEXTROSE/WATER 1 100ML.BAG IVPB SCH (04:43)
[2023-11-23] MEDS: FAMOTIDINE 20 MG TAB PO SCH (08:45)
[2023-11-23] MEDS ORDERED: FAMOTIDINE 20 MG/2 ML VIAL IV SCH (09:00)
--- NOTE | 2023-11-23 10:30 | P.PN ---
Subjective Patient is seen for follow-up for acute kidney injury. Renal function has improved. Patient is status post IV fluids. Off of pressors and IV fluids. Tolerating oral intake well. Serum creatinine improved to 1.2 from 7.7 on initial admission. No significant complaints today. Objective - Vital Signs Vital signs: Vital Signs Temp 97.5 F L 11/23/23 08:00 Pulse 90 11/23/23 10:00 Resp 22 11/23/23 10:00 BP 108/86 11/23/23 10:00 Pulse Ox 92 L 11/23/23 10:00 FiO2 Intake & Output 11/22/23 11/23/23 11/23/23 18:59 06:59 18:59 Intake Total 4447.972 9155 420 Output Total 1100 770 355 Balance 372.277 630 65 Weight 86.1 kg Intake: IV 1200 1200 220 Sodium Chloride 0.9% 1, 1200 1200 220 000 ml @ 100 mls/hr IV . Q10H [facility] Rx#:[id number] Intake, IV Titration 272.277 200 200 Amount Magnesium Sulfate-D5w Pmx 200 200 1 gm In Dextrose/Water 1 100ml.bag @ 100 mls/hr IVPB Q1H [facility] Rx#: [id number] Norepinephrine 4 mg In 272.277 Sodium Chloride 0.9% 250 ml @ 0.03 MCG/KG/MIN 8. 555 mls/hr IV .Q24H [facility] Rx#:[id number] Output: Urine 1100 770 355 Other: Voiding Method Indwelling Catheter Indwelling Catheter Indwelling Catheter # Bowel Movements 1 - Exam Patient is comfortable awake not in any acute distress. Examination of the heart S1 and S2 Examination of the lungs bilateral breath sounds are heard Abdomen is soft nontender Examination of lower extremities shows no significant edema. [employer]CTORY GRINDER OPERATOR exam grossly intact - Labs CBC & Chem 7: 11/23/23 03:47 11/23/23 03:47 Labs: Abnormal Lab Results - Last 24 Hours (Table) 11/23/23 11/23/23 Range/Units 03:47 03:47 RBC 3.77 L (4.30-5.90) m/uL Hgb 11.6 L (13.0-17.5) gm/dL Hct 35.1 L (39.0-53.0) % Plt Count 102 L (150-450) k/uL Lymphocytes # 0.9 L (1.0-4.8) k/uL Chloride 116 H (98-107) mmol/L BUN 26 H (9-20) mg/dL Calcium 7.4 L (8.4-10.2) mg/dL Magnesium 0.8 L* (1.6-2.3) mg/dL Microbiology - Last 24 Hours (Table) 11/20/23 17:45 Blood Culture - Preliminary Blood Assessment and Plan Assessment: 1. Acute kidney injury, nonoliguric ATN secondary to hypotension in the setting of use of angiotensin receptor blockers. Definitely of a component of hypovolemia is present. No evidence of hydronephrosis on ultrasound. 2. Hypotension associated with hypovolemia rule out underlying infection. 3. Anion gap metabolic acidosis secondary to acute kidney injury and lactic acidosis, currently improved 4. Hypotension associated with hypovolemia. Cortisol was not low. 5. Chronic A-fib maintained on anticoagulation. Rate is controlled. Plan: Continue to encourage increase oral intake Replace magnesium Continue to hold all antihypertensive medications
--- NOTE | 2023-11-23 10:55 | P.PN ---
Subjective Progress Note Date: 11/23/23 I am seeing this patient in consultation today 11/21/2023 in the intensive care unit after he was admitted for intractable nausea and vomiting, severe dehydration, and acute kidney injury. Blood pressure was hypotensive in the emergency room despite adequate fluid resuscitation, requiring low-dose norepi nephrine, and admission to the intensive care unit. Patient is a 63-year-old white male with past medical history significant for aortic valve replacement, atrial fibrillation, alcoholism, and chronic pancreatitis. Patient reports intractable nausea and vomiting over the last week. No fever. He is not able to keep any oral fluids or food down. He has been severely weak. He has been dizzy especially on arising. Reports multiple near syncopal events where he is fallen on the floor. Patient states that he has drinks alcohol, approximately 6-12 beers per day, but has not had anything over the last week. He denies any hematemesis, diarrhea, melena, constipation. He does report some mild right lower quadrant abdominal pain. Nonradiating. Abdomen is soft and does not appear acute. No guarding with palpation or rigidity. Patient is currently lying in bed, on 2 L/min nasal cannula, in no acute distress. SpO2 is 95%. Denies any shortness of breath. Denies any URI-like symptoms. Negative for influenza, RSV, COVID. Chest x-ray does not show any acute cardiopulmonary findings. D enies chest pain. Does report intermittent heart palpitations and lightheadedness. He was into see his room manager last , and was recently started on PO amiodarone. He is also on losartan and metoprolol outpatient. Heart rhythm is currently atrial fibrillation with controlled ventricular rate of around 70 bpm. Blood pressure remains hypotensive despite multiple fluid boluses given in ER, I am told a total of 4 L of crystalloid fluid was given. Normal saline is currently infusing at 130 MLS per hour. Patient is currently on low-dose norepinephrine infusing at 0.02 mcg/kg/min or 1.5 mcg/min. He has sustained acute kidney injury. Ultrasound of the kidneys and bladder did not show any obstructive uropathy or hydronephrosis. Most recent BMP from last night includes a sodium 135, potassium 4.2, chloride 102, serum bicarb 17, BUN and creatinine down to 109 and 5.43 respectively, glucose 123. Most recent CBC from last night was unremarkable, no leukocytosis. Lactic acid level was elevated at 7.5 and is down to 1.4. Troponin was also elevated at 0.4 and is down to 0.026 on redraw. Lipase was only mildly elevated at 317. AST 35, ALT 28, ALP 133. Urinalysis not concerning for UTI. He does have a indwelling urinary catheter, and is making urine in the order of approximately 50 cc/h. Currently, the patient is resting comfortably. No further nausea or vomiting. He is tolerating a minimal amount of clear liquids. The patient is seen today November 22, 2023 in follow-up in the intensive care unit. He is currently resting comfortably in bed. Awake and alert in no acute distress. He is feeling better today compared to yesterday. He is still requiring norepinephrine at 4 mcg/min. He has normal saline at 100 MLS per hour. He remains in atrial fibrillation. He is maintaining good O2 saturations in the 90s on room air. His cortisol level was 38.1. Thyroid function normal. He is anticoagulated with Eliquis. White count 6.3. Hemoglobin 11.6. Platel ets 118. Sodium 138. Potassium 3.4. Bicarb 21. BUN 53. Creatinine 1.78. Glucose 125. Blood culture revealing no growth. The patient is seen today November 23, 2023 in follow-up in the intensive care unit. He is sitting up in bed. Awake and alert in no acute distress. He denies any worsening shortness of breath, cough or congestion. Maintaining O2 saturation in the 90s on room air. Has been afebrile. Hemodynamically stable. Cultures revealed no growth. White count 5.0. Hemoglobin 11.6. Platelets 102. Sodium 140. Potassium 4.3. Bicarb 23. BUN 26. Creatinine 1.20. Magnesium 0.8. Calcium 7.4. He is continued on Eliquis for anticoagulation. Magnesium being replaced. Objective - Vital Signs Vital signs: Vital Signs Temp 97.5 F L 11/23/23 08:00 Pulse 90 11/23/23 10:00 Resp 22 11/23/23 10:00 BP 108/86 11/23/23 10:00 Pulse Ox 92 L 11/23/23 10:00 FiO2 Intake & Output 11/22/23 11/23/23 11/23/23 18:59 06:59 18:59 Intake Total 0012.493 2388 420 Output Total 1100 770 355 Balance 372.277 630 65 Weight 86.1 kg Intake: IV 1200 1200 220 Sodium Chloride 0.9% 1, 1200 1200 220 000 ml @ 100 mls/hr IV . Q10H [facility] Rx#:[id number] Intake, IV Titration 272.277 200 200 Amount Magnesium Sulfate-D5w Pmx 200 200 1 gm In Dextrose/Water 1 100ml.bag @ 100 mls/hr IVPB Q1H [facility] Rx#: [id number] Norepinephrine 4 mg In 272.277 Sodium Chloride 0.9% 250 ml @ 0.03 MCG/KG/MIN 8. 555 mls/hr IV .Q24H [facility] Rx#:[id number] Output: Urine 1100 770 355 Other: Voiding Method Indwelling Catheter Indwelling Catheter Indwelling Catheter # Bowel Movements 1 - Exam GENERAL EXAM: Alert, very pleasant 63-year-old male, on room air. Sitting up in bed. Comfortable in no apparent distress. HEAD: Normocephalic and atraumatic EYES: Normal reaction of pupils, equal size. NOSE: Clear with pink turbinates. THROAT: Dry mucous membranes, No erythema or exudates. NECK: No masses, no JVD. CHEST: No chest wall deformity. LUNGS: Equal air entry with no crackles, wheeze, rhonchi or dullness. No conversational dyspnea. CVS: S1 and S2 normal with no audible murmur, irregular rhythm. No extra heart sounds ABDOMEN: Abdomen is flat. Active bowel sounds. No hepatosplenomegaly. No guarding or rigidity. SPINE: No scoliosis or deformity SKIN: No rashes CENTRAL NERVOUS SYSTEM: No focal deficits, tone is normal in all 4 extremities. EXTREMITIES: There is no peripheral edema, clubbing, or cyanosis. Peripheral pulses are intact. - Labs CBC & Chem 7: 11/23/23 03:47 11/23/23 03:47 Labs: Abnormal Lab Results - Last 24 Hours (Table) 11/23/23 11/23/23 Range/Units 03:47 03:47 RBC 3.77 L (4.30-5.90) m/uL Hgb 11.6 L (13.0-17.5) gm/dL Hct 35.1 L (39.0-53.0) % Plt Count 102 L (150-450) k/uL Lymphocytes # 0.9 L (1.0-4.8) k/uL Chloride 116 H (98-107) mmol/L BUN 26 H (9-20) mg/dL Calcium 7.4 L (8.4-10.2) mg/dL Magnesium 0.8 L* (1.6-2.3) mg/dL Microbiology - Last 24 Hours (Table) 11/20/23 17:45 Blood Culture - Preliminary Blood Assessment and Plan Assessment: Intractable nausea and vomiting and severe dehydration suspect secondary to a GI virus Refractory hypotension and suspected hypovolemic shock, secondary to above Lactic acidosis, improved Abdominal pain, currently under investigation Acute kidney injury, secondary to severe dehydration, improving Atrial fibrillation with controlled ventricular rate, normally anticoagulated on Eliquis History of hypertension History of aortic stenosis, status post aortic valve replacement Alcoholism, drinks 6-12 beers per day History of chronic pancreatitis Plan: The patient was seen and evaluated Labs and medications reviewed Feeling quite a bit better today Tolerating a diet Electrolytes being replaced Transfer out of the ICU today The patient is anxious to go home I have personally seen and examined the patient, performed the documentation and the assessment and plan as written. Number of minutes spent on the visit: 10.
--- NOTE | 2023-11-23 15:49 | P.PN ---
Subjective Progress Note Date: 11/23/23 Patient pleasant 63-year-old male is admitted for acute renal failure with creatinine going up to 7.1 on admission came down to 4.6 with IV fluids. Patient has not been eating or drinking for 1 week secondary to nausea vomiting which is again secondary to gastroesophageal reflux disease or gastritis or pe ptic ulcer disease. Patient has multiple near syncopal episodes patient was in hypovolemic shock requiring pressor support IV fluids and was admitted to ICU patient is feeling much better at this time he is on diet. Patient has mild nonspecific elevation of lipase present creatinine is 4.6 patient had leukocytosis which improved no evidence of infection at this time patient has mild elevated of troponin on admission secondary to renal failure which improved at this time patient does not have any chest pain or EKG changes chest x-ray did not show any significant abnormality. 11/22/2023 Patient is evaluated today in the intensive care unit. He is alert and oriented x 3. He is being weaned off of pressor support and his blood pressure has maintained in the 100s systolic. He reports minimal nausea today has not had any vomiting. His white count today is 6.3, hemoglobin 11.6, sodium 138, potassium 3.4, chloride of 111, CO2 of 21, BUN of 53, creatinine of 1.78, calcium 7.6. Echocardiogram comes back showing an EF of 60 to 65% with no significant valvular dysfunction and no obvious regional wall motion abnormalities. Tentatively plan for downgrade from the ICU today. 11/23/2023 Patient evaluated today sitting up in the chair in the intensive care unit he has been downgraded to a medical surgical bed. He reports no nausea vomiting or diarrhea today. He tolerated some breakfast. Magnesium found to be 0.8 was replaced with 4 bags recommend to repeat in the morning. Patient's blood pressure has been in the high 90s to low 100s and has been off Levophed support. He is also continued off of his losartan. Pending PT evaluation and we can discontinue the Horton catheter. Review of Systems Constitutional: Denied any fatigue denied any fever. Cardio vascular: denied any chest pain, palpitations Gastrointestinal: denied any nausea, vomiting, diarrhea Pulmonary: Denied any shortness of breath cough Neurologic denied any new focal deficits All inpatient medications were reviewed and appropriate changes in these medications as dictated in the interval history and assessment and plan. PHYSICAL EXAMINATION: GENERAL: The patient is alert and oriented x3, not in any acute distress. Well developed, well nourished. HEENT: Pupils are round and equally reacting to light. EOMI. No scleral icterus. No conjunctival pallor. Normocephalic, atraumatic. No pharyngeal erythema. No thyromegaly. CARDIOVASCULAR: S1 and S2 present. No murmurs, rubs, or gallops. PULMONARY: Chest is clear to auscultation, no wheezing or crackles. ABDOMEN: Soft, nontender, nondistended, normoactive bowel sounds. No palpable organomegaly. MUSCULOSKELETAL: No joint swelling or deformity. EXTREMITIES: No cyanosis, clubbing, or pedal edema. NEUROLOGICAL: Gross neurological examination did not reveal any focal deficits. SKIN: No rashes. Assessment and plan -Acute renal failure: Prerenal azotemia secondary to severe dehydration from nausea vomiting/ATN recommend to avoid nephrotoxic agents ARB has been placed on hold. -Hypovolemic shock patient did require vasopressor support he has been weaned off of Levophed and blood pressure is maintaining in the 100 systolic. -Hypovolemic hyponatremia improving patient will be continued on normal saline overnight with repeat labs in the morning. -Peptic ulcer disease/gastritis: Patient will be continued on Protonix -Alcohol abuse history: Counseling was provided patient will be monitored for withdrawals -Atrial fibrillation controlled ventricular rate anticoagulated on Eliquis which was resumed -Hypertension currently hypotensive and hypovolemic shock as above -History of aortic stenosis with arctic valve placement in the past -Mildly elevated lipase nonspecific elevation not consistent with pancreatitis secondary to chronic alcohol use. DVT prophylaxis: Subcutaneous heparin Patient has been downgraded from the ICU to the medical floor. Pending PT evaluation. IDC can be discontinued. Nephrology following. Repeat labs in the AM. Possible discharge home in the next 24 hours. The impression and plan of care has been dictated by Chen Wagner Nurse Practitioner as directed. Dr. Leah MD I have performed a history and physical examination and medical decision making of this patient, discussed the same with the dictator, and agree with the dictators assessment and plan as written, documented as a scribe. Based on total visit time, I have performed more than 50% of this visit. Objective - Vital Signs Vital signs: Vital Signs Temp 97.5 F L 11/23/23 08:00 Pulse 90 11/23/23 10:00 Resp 22 11/23/23 10:00 BP 108/86 11/23/23 10:00 Pulse Ox 92 L 11/23/23 10:00 FiO2 Intake & Output 11/22/23 11/23/23 11/23/23 18:59 06:59 18:59 Intake Total 6657.823 8678 420 Output Total 1100 770 355 Balance 372.277 630 65 Weight 86.1 kg Intake: IV 1200 1200 220 Sodium Chloride 0.9% 1, 1200 1200 220 000 ml @ 100 mls/hr IV . Q10H [facility] Rx#:[id number] Intake, IV Titration 272.277 200 200 Amount Magnesium Sulfate-D5w Pmx 200 200 1 gm In Dextrose/Water 1 100ml.bag @ 100 mls/hr IVPB Q1H [facility] Rx#: [id number] Norepinephrine 4 mg In 272.277 Sodium Chloride 0.9% 250 ml @ 0.03 MCG/KG/MIN 8. 555 mls/hr IV .Q24H [facility] Rx#:[id number] Output: Urine 1100 770 355 Other: Voiding Method Indwelling Catheter Indwelling Catheter Indwelling Catheter # Bowel Movements 1 - Labs CBC & Chem 7: 11/23/23 03:47 11/23/23 03:47 Labs: Abnormal Lab Results - Last 24 Hours (Table) 11/23/23 11/23/23 Range/Units 03:47 03:47 RBC 3.77 L (4.30-5.90) m/uL Hgb 11.6 L (13.0-17.5) gm/dL Hct 35.1 L (39.0-53.0) % Plt Count 102 L (150-450) k/uL Lymphocytes # 0.9 L (1.0-4.8) k/uL Chloride 116 H (98-107) mmol/L BUN 26 H (9-20) mg/dL Calcium 7.4 L (8.4-10.2) mg/dL Magnesium 0.8 L* (1.6-2.3) mg/dL Microbiology - Last 24 Hours (Table) 11/20/23 17:45 Blood Culture - Preliminary Blood Assessment and Plan Time with Patient: Less than 30
--- NOTE | 2023-11-24 08:28 | P.PN ---
Subjective Progress Note Date: 11/24/23 I am seeing this patient in consultation today 11/21/2023 in the intensive care unit after he was admitted for intractable nausea and vomiting, severe dehydration, and acute kidney injury. Blood pressure was hypotensive in the emergency room despite adequate fluid resuscitation, requiring low-dose norepi nephrine, and admission to the intensive care unit. Patient is a 63-year-old white male with past medical history significant for aortic valve replacement, atrial fibrillation, alcoholism, and chronic pancreatitis. Patient reports intractable nausea and vomiting over the last week. No fever. He is not able to keep any oral fluids or food down. He has been severely weak. He has been dizzy especially on arising. Reports multiple near syncopal events where he is fallen on the floor. Patient states that he has drinks alcohol, approximately 6-12 beers per day, but has not had anything over the last week. He denies any hematemesis, diarrhea, melena, constipation. He does report some mild right lower quadrant abdominal pain. Nonradiating. Abdomen is soft and does not appear acute. No guarding with palpation or rigidity. Patient is currently lying in bed, on 2 L/min nasal cannula, in no acute distress. SpO2 is 95%. Denies any shortness of breath. Denies any URI-like symptoms. Negative for influenza, RSV, COVID. Chest x-ray does not show any acute cardiopulmonary findings. D enies chest pain. Does report intermittent heart palpitations and lightheadedness. He was into see his truck packer last , and was recently started on PO amiodarone. He is also on losartan and metoprolol outpatient. Heart rhythm is currently atrial fibrillation with controlled ventricular rate of around 70 bpm. Blood pressure remains hypotensive despite multiple fluid boluses given in ER, I am told a total of 4 L of crystalloid fluid was given. Normal saline is currently infusing at 130 MLS per hour. Patient is currently on low-dose norepinephrine infusing at 0.02 mcg/kg/min or 1.5 mcg/min. He has sustained acute kidney injury. Ultrasound of the kidneys and bladder did not show any obstructive uropathy or hydronephrosis. Most recent BMP from last night includes a sodium 135, potassium 4.2, chloride 102, serum bicarb 17, BUN and creatinine down to 109 and 5.43 respectively, glucose 123. Most recent CBC from last night was unremarkable, no leukocytosis. Lactic acid level was elevated at 7.5 and is down to 1.4. Troponin was also elevated at 0.4 and is down to 0.026 on redraw. Lipase was only mildly elevated at 317. AST 35, ALT 28, ALP 133. Urinalysis not concerning for UTI. He does have a indwelling urinary catheter, and is making urine in the order of approximately 50 cc/h. Currently, the patient is resting comfortably. No further nausea or vomiting. He is tolerating a minimal amount of clear liquids. The patient is seen today November 22, 2023 in follow-up in the intensive care unit. He is currently resting comfortably in bed. Awake and alert in no acute distress. He is feeling better today compared to yesterday. He is still requiring norepinephrine at 4 mcg/min. He has normal saline at 100 MLS per hour. He remains in atrial fibrillation. He is maintaining good O2 saturations in the 90s on room air. His cortisol level was 38.1. Thyroid function normal. He is anticoagulated with Eliquis. White count 6.3. Hemoglobin 11.6. Platel ets 118. Sodium 138. Potassium 3.4. Bicarb 21. BUN 53. Creatinine 1.78. Glucose 125. Blood culture revealing no growth. The patient is seen today November 23, 2023 in follow-up in the intensive care unit. He is sitting up in bed. Awake and alert in no acute distress. He denies any worsening shortness of breath, cough or congestion. Maintaining O2 saturation in the 90s on room air. Has been afebrile. Hemodynamically stable. Cultures revealed no growth. White count 5.0. Hemoglobin 11.6. Platelets 102. Sodium 140. Potassium 4.3. Bicarb 23. BUN 26. Creatinine 1.20. Magnesium 0.8. Calcium 7.4. He is continued on Eliquis for anticoagulation. Magnesium being replaced. Patient is seen today November 24, 2023 in follow-up on the regular medical floor. He is awake and alert in no acute distress. Sitting up at the bedside. He denies any shortness of breath, cough or congestion. He did have another episode of nausea and vomiting last evening. He remains on Zofran as needed. He is anticoagulated with Eliquis. Continued on Pepcid and Maalox. Blood cultures revealed no growth. Today's labs are pending. Nephrology is following. Objective - Vital Signs Vital signs: Vital Signs Temp 98.5 F 11/24/23 07:35 Pulse 70 11/24/23 07:35 Resp 18 11/24/23 07:35 BP 124/84 11/24/23 07:35 Pulse Ox 97 11/24/23 08:17 FiO2 Intake & Output 11/23/23 11/24/23 11/24/23 18:59 06:59 18:59 Intake Total 920 590 Output Total 880 Balance 40 590 Intake: IV 220 Sodium Chloride 0.9% 1, 220 000 ml @ 100 mls/hr IV . Q10H [facility] Rx#:[id number] Intake, IV Titration 200 Amount Magnesium Sulfate-D5w Pmx 200 1 gm In Dextrose/Water 1 100ml.bag @ 100 mls/hr IVPB Q1H [facility] Rx#: [id number] Oral 500 590 Output: Urine 880 Other: Voiding Method Indwelling Catheter Toilet # Voids 3 - Exam GENERAL EXAM: Alert, very pleasant 63-year-old male, on room air. Comfortable in no apparent distress. HEAD: Normocephalic and atraumatic EYES: Normal reaction of pupils, equal size. NOSE: Clear with pink turbinates. THROAT: Dry mucous membranes, No erythema or exudates. NECK: No masses, no JVD. CHEST: No chest wall deformity. LUNGS: Equal air entry with no crackles, wheeze, rhonchi or dullness. No conversational dyspnea. CVS: S1 and S2 normal with no audible murmur, irregular rhythm. No extra heart sounds ABDOMEN: Abdomen is flat. Active bowel sounds. No hepatosplenomegaly. No guarding or rigidity. SPINE: No scoliosis or deformity SKIN: No rashes CENTRAL NERVOUS SYSTEM: No focal deficits, tone is normal in all 4 extremities. EXTREMITIES: There is no peripheral edema, clubbing, or cyanosis. Peripheral pulses are intact. - Labs CBC & Chem 7: 11/23/23 03:47 11/23/23 03:47 Labs: Microbiology - Last 24 Hours (Table) 11/20/23 17:45 Blood Culture - Preliminary Blood Assessment and Plan Assessment: Intractable nausea and vomiting and severe dehydration suspect secondary to a GI virus Refractory hypotension and suspected hypovolemic shock, secondary to above, recovered Lactic acidosis, improved Abdominal pain, currently under investigation Acute kidney injury, secondary to severe dehydration, improving Atrial fibrillation with controlled ventricular rate, normally anticoagulated on Eliquis History of hypertension History of aortic stenosis, status post aortic valve replacement Alcoholism, drinks 6-12 beers per day History of chronic pancreatitis Plan: The patient was seen and evaluated Medications reviewed Stable and on room air Cleared for discharge from the pulmonary standpoint This patient was seen independently by the pulmonary nurse practitioner addressing pulmonary issues I have personally seen and examined the patient, performed the documentation and the assessment and plan as written. Number of minutes spent on the visit: 22.
[2023-11-24 10:25] LABS: BUN/Creat Ratio 11.58 Ratio (12.00-20.00); Blood Urea Nitrogen 13.9 mg/dL (9.0-27.0); Calcium 7.9 mg/dL (8.7-10.3); Carbon Dioxide 24.3 mmol/L (21.6-31.8); Chloride 108 mmol/L (96-109); Glucose 103 mg/dL (70-110); Magnesium 1.5 mg/dL (1.5-2.4); Potassium 4.7 mmol/L (3.5-5.5); Sodium 139 mmol/L (135-145)
--- NOTE | 2023-11-24 11:00 | P.PN ---
Subjective Patient is seen for follow-up for acute kidney injury. Renal function has improved. Patient is status post IV fluids. Tolerating oral intake well. Serum creatinine improved to 1.2 from 7.7 on initial admission. No significant complaints today. Horton catheter was removed yesterday. Objective - Vital Signs Vital signs: Vital Signs Temp 98.5 F 11/24/23 07:35 Pulse 70 11/24/23 07:35 Resp 18 11/24/23 07:35 BP 124/84 11/24/23 07:35 Pulse Ox 97 11/24/23 08:17 FiO2 Intake & Output 11/23/23 11/24/23 11/24/23 18:59 06:59 18:59 Intake Total 920 590 Output Total 880 Balance 40 590 Intake: IV 220 Sodium Chloride 0.9% 1, 220 000 ml @ 100 mls/hr IV . Q10H [facility] Rx#:[id number] Intake, IV Titration 200 Amount Magnesium Sulfate-D5w Pmx 200 1 gm In Dextrose/Water 1 100ml.bag @ 100 mls/hr IVPB Q1H [facility] Rx#: [id number] Oral 500 590 Output: Urine 880 Other: Voiding Method Indwelling Catheter Toilet # Voids 3 - Exam Patient is comfortable awake not in any acute distress. Examination of the heart S1 and S2 Examination of the lungs bilateral breath sounds are heard Abdomen is soft nontender Examination of lower extremities shows no significant edema. CROZER exam grossly intact - Labs CBC & Chem 7: 11/23/23 03:47 11/24/23 06:44 Labs: Abnormal Lab Results - Last 24 Hours (Table) 11/24/23 Range/Units 06:44 BUN/Creatinine Ratio 11.58 L (12.00-20.00) Ratio Calcium 7.9 L (8.7-10.3) mg/dL Microbiology - Last 24 Hours (Table) 11/20/23 17:45 Blood Culture - Preliminary Blood Assessment and Plan Assessment: 1. Acute kidney injury, nonoliguric ATN secondary to hypotension in the setting of use of angiotensin receptor blockers. Definitely of a component of hypovolemia is present. No evidence of hydronephrosis on ultrasound. 2. Hypotension associated with hypovolemia rule out underlying infection. 3. Anion gap metabolic acidosis secondary to acute kidney injury and lactic acidosis, currently improved 4. Hypotension associated with hypovolemia. Cortisol was not low. 5. Chronic A-fib maintained on anticoagulation. Rate is controlled. Plan: Continue to encourage increase oral intake Check postvoid bladder scan. Patient is cleared for discharge from nephrology standpoint.
[2023-11-24] MEDS ORDERED: Magnesium Replacement Protocol 1 EACH MISC MISCELLANE PRN (11:51)
[2023-11-24] MEDS: MAGNESIUM SULFATE-D5W PMX 1 GM in DEXTROSE/WATER 1 100ML.BAG IVPB SCH (12:26)
[2023-11-24 13:30] VITALS: BP 111/81; PULSE 92; RESP 15; TEMP 98.4
--- NOTE | 2023-11-27 14:08 | P.DS ---
Providers Date of admission: 11/20/23 16:24 Attending physician: Shereen Gibbons Consults: 11/20/23 16:24 Consult Physician Routine Consulting Provider: Ne Aguilar Consult Reason/Comments: nicole Do you want consulting provider notified?: Yes 11/20/23 19:01 Consult Physician Urgent Consulting Provider: Manpreet Serrano Reason/Comments: critical care Do you want consulting provider notified?: Already Contacted Primary care physician: Manpreet Cabrera [facility] Course: Final Diagnosis -Acute renal failure: Prerenal azotemia secondary to severe dehydration from nausea vomiting/ATN -Hypovolemic shock patient did require vasopressor support he has been weaned off of Levophed -Hypovolemic hyponatremia -Peptic ulcer disease/gastritis: Patient will be continued on Protonix -Alcohol abuse history: Counseling was provided -Atrial fibrillation controlled ventricular rate anticoagulated on Eliquis -Hypertension currently hypotensive and hypovolemic shock as above -History of aortic stenosis with arctic valve placement in the past -Mildly elevated lipase nonspecific elevation not consistent with pancreatitis secondary to chronic alcohol use. Discharge Disposition Patient is stable for discharge home recommend close follow-up with his PCP Dr. Cabrera and his known supply room clerk Dr. CHENTE Mandujano. Patient to repeat his BMP in 2 to 3 days. Patient recommended to stay off the valsartan medication and monitor his blood pressure at home. Hospital Course This is a pleasant 63-year-old male is admitted for acute renal failure with creatinine going up to 7.1 on admission came down to 4.6 with IV fluids. Patient has not been eating or drinking for 1 week secondary to nausea vomiting which is again secondary to gastroesophageal reflux disease or gastritis or peptic ulcer disease. Patient has multiple near syncopal episodes patient was in hypovolemic shock requiring pressor support IV fluids and was admitted to ICU. Patient has mild nonspecific elevation of lipase present creatinine is 4.6 patient had leukocytosis which improved no evidence of infection at this time patient has mild elevated of troponin on admission secondary to renal failure which improved at this time patient does not have any chest pain or EKG changes chest x-ray did not show any significant abnormality. Admitted to medicine with business strategist and nephrology consultation. Clinically he improved with IV hydra tion and creatinine has normalized. Nausea, vomiting have also resolved at this time. Patient was moved out of the intensive care unit and taken to the medical floor. He was seen and evaluated by PT OT and cleared for discharge home. No shortness of breath no chest pain no nausea vomiting diarrhea no dizziness or lightheadedness he is alert x 3 with no focal neurological deficits and he will be cleared for discharge home. Please see medication reconciliation for a list of current medications. Thank you for allowing us to participate in the care of this patien The impression and plan of care has been dictated by Chen Wagner, Nurse Practitioner as directed. Dr. Leah MD I have performed a history and physical examination and medical decision making of this patient, discussed the same with the dictator, and agree with the dictators assessment and plan as written, documented as a scribe. Based on total visit time, I have performed more than 50% of this visit. Patient Condition at Discharge: Fair Plan - Discharge Summary New Discharge Prescriptions: New Famotidine [Pepcid] 20 mg PO DAILY #30 tab Thiamine [Vitamin B-1] 100 mg PO DAILY #30 tab Ondansetron Odt [Zofran Odt] 4 mg PO Q8HR PRN #16 tab PRN Reason: Nausea Continue Metoprolol Tartrate [Lopressor] 50 mg PO BID Apixaban [Eliquis] 5 mg PO BID Amiodarone [Cordarone] 200 mg PO BID Discontinued Valsartan [Diovan] 160 mg PO DAILY Discharge Medication List Metoprolol Tartrate [Lopressor] 50 mg PO BID 09/07/15 [History] Amiodarone [Cordarone] 200 mg PO BID 11/20/23 [History] Apixaban [Eliquis] 5 mg PO BID 11/20/23 [History] Famotidine [Pepcid] 20 mg PO DAILY #30 tab 11/24/23 [Rx] Ondansetron Odt [Zofran Odt] 4 mg PO Q8HR PRN #16 tab 11/24/23 [Rx] Thiamine [Vitamin B-1] 100 mg PO DAILY #30 tab 11/24/23 [Rx] Follow up Appointment(s)/Referral(s): Yosi Mandujano MD [STAFF PHYSICIAN] - 12/05/23 (Cardiology) Manpreet Cabrera MD [Primary Care Provider] - 1-2 days (Medical Doctor Patient instructed to make a follow-up appointment since office closed at time of discharge) Ambulatory/Diagnostic Orders: Basic Metabolic Panel [LAB.AMB] Time Frame: 3 Days, Location: None Selected Patient Instructions/Handouts: Thiamine (By mouth), Ondansetron (By mouth), Acute Kidney Injury (DC) Activity/Diet/Wound Care/Special Instructions: Keep your same appointment with your supply room clerk. Recommend to check your blood pressure at the same time everyday, in the evenings after sitting down and keep log for follow up. Do NOT continue taking valsartan. Stop this medication. Recommend to repeat your blood work in 2 to 3 days to monitor kidney function and follow up with Dr. Cabrera - see prescription for lab work Can take zofran dissolvable tablet as needed for nausea. Recommend to avoid alcohol Discharge/Stand Alone Forms: AA Meetings [facility] - [facility], AA Meetings [place] Discharge Disposition: HOME SELF-CARE
== END 2023-11-24 15:27 | disposition home or self-care (01) | DRG 682 ==
LOC: EC 13:35 → 2SICU 16:24 → 5NMEDONC 11-23 17:58
PROVIDERS: ADMIT Internal Medicine; ATTEND Internal Medicine
PROC: 3E043XZ Introduction of Vasopressor into Central Vein, Percutaneous Approach (ICD-10-PCS; principal; 2023-11-21)
DX: N17.0 Acute kidney failure with tubular necrosis (principal); R57.1 Hypovolemic shock; E87.1 Hypo-osmolality and hyponatremia; E87.20 Acidosis, unspecified; I48.20 Chronic atrial fibrillation, unspecified; K86.1 Other chronic pancreatitis; E86.1 Hypovolemia; I95.9 Hypotension, unspecified; A08.4 Viral intestinal infection, unspecified; E86.0 Dehydration; F10.20 Alcohol dependence, uncomplicated; R74.8 Abnormal levels of other serum enzymes; R07.89 Other chest pain; I10 Essential (primary) hypertension; M19.90 Unspecified osteoarthritis, unspecified site; I35.0 Nonrheumatic aortic (valve) stenosis; K21.9 Gastro-esophageal reflux disease without esophagitis; K29.70 Gastritis, unspecified, without bleeding; K27.9 Peptic ulcer, site unspecified, unspecified as acute or chronic, without hemorrhage or perforation; Z79.01 Long term (current) use of anticoagulants; Z79.899 Other long term (current) drug therapy; Z95.2 Presence of prosthetic heart valve; Z86.14 Personal history of Methicillin resistant Staphylococcus aureus infection; Z28.310 Unvaccinated for COVID-19; Z28.21 Immunization not carried out because of patient refusal
CPT/HCPCS: 36415; 70450; 71046; 72125; 76700; 76770; 80048; 80053; 81003; 82533; 83605; 83690; 83735; 84443; 84484; 85025; 85610; 85730; 86301; 87040; 87636; 93005; 93306; 94760; 96361; 96374; 96375; 99291